=== PATIENT | male | born 1975 | race Hispanic/Latino ===

== ENCOUNTER 2016-10-10 15:27 | Inpatient (IN) | payer MEDICAID, OTHER ==
[2016-10-10 15:27] VITALS: BMI 21.5
[2016-10-10 17:44] LABS: BASO % 0.7 % (0.0-2.0); EOS % 0.5 % (0.0-4.0); LYMPH # 2.3 K/uL (1.0-4.3); LYMPH % 34.6 % (20.0-40.0); MEAN CELL VOLUME 85.4 fL (80.0-94.0); MEAN CORPUSCULAR HEMOGLOBIN 28.6 pg (27.0-31.0); MEAN CORPUSCULAR HGB CONC 33.5 g/dL (33.0-37.0); MEAN PLATELET VOLUME 7.7 fL (7.2-11.7); MONO # 0.6 K/uL (0.0-0.8); MONO % 9.4 % (0.0-10.0); WHITE BLOOD COUNT 6.6 K/uL (4.8-10.8)
[2016-10-10 17:52] LABS: CHLORIDE 95 mmol/L (98-107); POTASSIUM 4.1 mmol/L (3.6-5.2); SODIUM 139 mmol/L (132-148)
[2016-10-10 17:55] LABS: ALB/GLOB RATIO 1.7 (1.0-2.1); ALKALINE PHOSPHATASE 109 U/L (38-126); ALT/SGPT 109 U/L (21-72); AST/SGOT 73 U/L (17-59); BILIRUBIN,TOTAL 0.6 mg/dL (0.2-1.3); BLOOD UREA NITROGEN 12 mg/dL (9-20); CARBON DIOXIDE 28 mmol/L (22-30); GFR AFRICAN-AMERICAN > 60; GLUCOSE,RANDOM 89 mg/dL (75-110); TOTAL PROTEIN 7.4 g/dL (6.3-8.3)
[2016-10-10 17:56] LABS: ALCOHOL SERUM < 10 mg/dl (0-10); CALCIUM 8.9 mg/dl (8.6-10.4)
--- NOTE | 2016-10-10 18:43 | C.PDOC ---
History Of Present Illness <Karen Sutherland - Last Filed: 10/10/16 18:50> <Brandt Eagle - Last Filed: 10/10/16 20:04> 41 year old man presents to the ED with complaints of depression and suicidal ideation. Patient states he has a plan and notes he is currently on methadone. Denies homicidal ideation or any physical complaints at this time. (Karen Sutherland) History Per: Patient History/Exam Limitations: no limitations Onset/Duration Of Symptoms: Days Current Symptoms Are (Timing): Still Present Suicide/Self Injury Attempted (Context): None Severity: Mild Associated Symptoms: Depression, Suicidal Thoughts, Suicidal Plan <Karen Sutherland - Last Filed: 10/10/16 18:50> <Brandt Eagle - Last Filed: 10/10/16 20:04> Time Seen by Provider: 10/10/16 17:29 Chief Complaint (Nursing): Psychiatric Evaluation Past Medical History Reviewed: Historical Data, Nursing Documentation, Vital Signs - Medical History PMH: Anxiety, Bipolar Disorder, Depression, Seizures (Benzo withdrawal) Family History: States: Unknown Family Hx - Social History Hx Tobacco Use: No Hx Alcohol Use: Yes Hx Substance Use: Yes (PREVIOUS HEROIN) - Immunization History Hx Tetanus Toxoid Vaccination: No Hx Influenza Vaccination: No Hx Pneumococcal Vaccination: No <Karen Sutherland - Last Filed: 10/10/16 18:50> Vital Signs: Last Vital Signs Temp 98.5 F 10/10/16 19:21 Pulse 86 10/10/16 19:21 Resp 20 10/10/16 19:21 BP 120/73 10/10/16 19:21 Pulse Ox 96 10/10/16 19:21 - [facility] Procedures DETOXIFICATION SERVICES FOR SUBSTANCE ABUSE TREATMENT (10/29/15) GROUP PSYCHOTHERAPY (11/15/15) INDIVIDUAL PSYCHOTHERAPY, SUPPORTIVE (11/15/15) MEDICATION MANAGEMENT (10/29/15) MEDS MGMT FOR SUBSTANCE ABUSE TREATMENT, METHADONE MAINT (11/15/15) Review Of Systems Except As Marked, All Systems Reviewed And Found Negative. Constitutional: Negative for: Fever, Chills Psych: Positive for: Depression, Suicidal ideation <Karen Sutherland - Last Filed: 10/10/16 18:50> Physical Exam - Physical Exam Appears: Non-toxic, No Acute Distress Skin: Normal Color, Warm, Dry Head: Atraumatic, Normacephalic Eye(s): bilateral: Normal Inspection Oral Mucosa: Moist Chest: Symmetrical, No Deformity Cardiovascular: Rhythm Regular Respiratory: Normal Breath Sounds, No Accessory Muscle Use, No Rales, No Rhonchi , No Wheezing Gastrointestinal/Abdominal: Soft, No Tenderness Extremity: Normal ROM Neurological/Psych: Oriented x3, Normal Speech <Karen Sutherland - Last Filed: 10/10/16 18:50> ED Course And Treatment - Laboratory Results Result Diagrams: 10/10/16 17:40 10/10/16 17:40 O2 Sat by Pulse Oximetry: 97 (Room air) Pulse Ox Interpretation: Normal Progress Note: Blood work and Urinalysis ordered and reviewed. Case discussed with the crisis caretaker resort who agreed to evaluate the patient. <Karen Sutherland - Last Filed: 10/10/16 18:50> - Laboratory Results Result Diagrams: 10/10/16 17:40 10/10/16 17:40 <Brandt Eagle - Last Filed: 10/10/16 20:04> Disposition - Disposition Disposition Time: 18:51 <Karen Sutherland - Last Filed: 10/10/16 18:50> - Disposition Disposition Time: 20:04 <Brandt Eagle - Last Filed: 10/10/16 20:04> - Disposition Disposition: HOSPITALIZED Condition: STABLE - Clinical Impression Clinical Impression: Opioid abuse, Depression - PA / P[employer] / Resident Statement MD/DO has reviewed & agrees with the documentation as recorded. - Scribe Statement The provider has reviewed the documentation as recorded by the Scribe <Karen Sutherland - Last Filed: 10/10/16 18:50> <Brandt Eagle - Last Filed: 10/10/16 20:04> - Scribe Statement Ys All medical record entries made by the Scribe were at my direction and personally dictated by me. I have reviewed the chart and agree that the record accurately reflects my personal performance of the history, physical exam, medical decision making, and the department course for this patient. I have also personally directed, reviewed, and agree with the discharge instructions and disposition.amada Choudhary. (Karen Sutherland) Physician Patient Turnover Patient Signed Over To: Brandt Eagle Handoff Comments: PEnidng disposition <Karen Sutherland - Last Filed: 10/10/16 18:50> Addendum <Karen Sutherland - Last Filed: 10/10/16 18:50> <Brandt Eagle - Last Filed: 10/10/16 20:04> Addendum: Pt seen by crisis and after discussion with dr Beatty pt to be admitted to 5E (Brandt Eagle)
[2016-10-10 18:45] LABS: RBC URINE 3 /hpf (0-3); URINE BILIRUBIN NEGATIVE (NEGATIVE); URINE BLOOD NEGATIVE (NEGATIVE); URINE COLOR Yellow (YELLOW); URINE GLUCOSE (UA) NORMAL (Normal); URINE KETONE TRACE mg/dL (NEGATIVE); URINE LEUKOCYTE ESTERASE NEG Leu/uL (Negative); URINE PROTEIN NEGATIVE (NEGATIVE); WBC URINE 1 /hpf (0-5)
[2016-10-10 20:53] VITALS: O2SAT 98
[2016-10-10] MEDS ORDERED: Aluminum Hydroxide/Magnesium Hydroxide Susp (30 mL) PO PRN (22:24)
[2016-10-11] MEDS: Methadone 40 mg Tab PO SCH (09:15)
--- NOTE | 2016-10-11 16:18 | PCM.PSYCH ---
Initial Psychiatric Evaluation - Initial Psychiatric Evaluation Legal Status: Capacity Chief Complaint (in patient's own words): Suicidal Ideation History of Present Illness and Precipitating Events: Pt is a 41 y/o M, , unemployed and homeless, w/ PMHx of attempted suicide, anxiety, depression, and substance abuse disorder, here w/ a chief complaint of suicidal ideation - Pt. planned to either lay on the train tracks or jump off of a building in [place], [place]. Pt. reports feeling suicidal for the past 1.5 months; suicidal thoughts increased in the last 8 days, and came to a head last night. Pt. called the hospital, and spoke to an individual on the phone - Antelmo - and he was encouraged to seek help in the ED. Pt. has had two previous suicide attempts: 1) About 1.5 years ago Pt. took every drug you could imagine with the intention of overdosing and ending his own life. Pt. was found by a friend, who called an ambulance. Pt. was not admitted into the hospital, because he did not admit to suicidal ideation. 2) 1 year ago Pt. deliberately overdosed on methadone and xanax with the intention of ending his own life. Pt. spent one week admitted to [facility]. Pt. was discharged w/ trazodone 50 mg daily, lexapro 20 mg daily, prazosin 1 mg daily, and gabapentin 400 mg TID. Pt. was seeing outpatient psychiatrist, and was taking meds before his most recent drug relapse. Pt. admits to long history of generalized anxiety and panic disorder - Pt. reports suffering from daily panic attacks as a teenager. Pt. first used opiates at the age of 23 in order to treat anxiety. Pt. reports using up to 50 bags of heroin a day, as well abusing xanax, and cocaine. Pt. admits to sniffing and snorting heroin. Pt.s longest period of sobriety was 4 years, between the ages of 28 and 32 - he relapsed after being prescribed opioids for pain after a hand surgery. Pt. attests to 9 months sober that ended a month ago. Pt. states that his girlfriend pressured him to go to bars, which undermined his sobriety. Pt. admits to insomnia, poor appetite, weight loss, anhedonia, feelings of guilt /worthlessness, and decreased focus. Pt. complains of withdrawal symptoms: diaphoresis, anxiety, headaches, and restlessness. Pt. reports that he has suffered from seizures in the past. Pt. is organized, with depressed affect. Pt. denies auditory and visual hallucinations. Pt. was previously living at a program called [facility], but is currently homeless. Current Medications: Active Medications Generic Name Dose Route Start Last Admin Trade Name Freq PRN Reason Stop Dose Admin Al Hydrox/Mg Hydrox/Simethicone 30 ml 10/10/16 22:24 Maalox 30 Ml PO TID PRN Indigestion / Heartburn Clonidine HCl 0.1 mg 10/10/16 22:24 10/10/16 22:52 Catapres PO 0.1 mg Q8 PRN Administration COWS Score More or Equal to 5 Fluoxetine HCl 20 mg 10/11/16 10:00 10/11/16 09:15 Prozac PO 20 mg DAILY MALDONADO Administration Gabapentin 300 mg 10/11/16 10:00 10/11/16 09:15 Neurontin PO 300 mg BID MALDONADO Administration Haloperidol 5 mg 10/10/16 22:28 Haldol PO Q1H PRN agitation, max 4x/24h Hydroxyzine HCl 50 mg 10/10/16 22:25 10/11/16 12:23 Atarax PO 50 mg Q6H PRN Administration Anxiety Ibuprofen 600 mg 10/10/16 22:25 10/10/16 22:41 Motrin Tab PO 600 mg Q6H PRN Administration Pain, moderate (4-7) Loperamide HCl 2 mg 10/10/16 22:24 Imodium PO Q8 PRN Diarrhea Methadone HCl 120 mg 10/11/16 10:00 10/11/16 09:15 Methadose PO 120 mg DAILY MALDONADO Administration Methadone HCl 30 mg 10/11/16 10:00 10/11/16 09:15 Methadone PO 30 mg DAILY MALDONADO Administration Ondansetron HCl 4 mg 10/10/16 22:24 Zofran Tab PO Q8 PRN Nausea/Vomiting Pneumococcal Polyvalent Vaccine 0.5 ml 10/12/16 10:00 Pneumovax 23 Vaccine IM 10/12/16 10:01 .ONCE ONE Trazodone HCl 100 mg 10/10/16 22:25 10/10/16 22:40 Desyrel PO 100 mg HS PRN Administration Insomnia Past Psychiatric History - Past Psychiatric History Pertinent Medical Hx (Current Medical&Sleep Prob, Allergies): Allergies Allergy/AdvReac Type Severity Reaction Status Date / Time No Known Allergies Allergy Verified 11/15/15 12:16 Methadone 150 mg PO DAILY 10/29/15 Review of Systems - Psychiatric Psychiatric: Anhedonia, Anxiety, Change in Appetite, Confusion, Depression, Difficulty Concentrating, Memory Loss, Panic Attacks, Suicidal Ideation. absent : Auditory Hallucinations, Hallucinations, Mood Swings, Paranoia, Visual Hallucinations Mental Status Examination - Personal Presentation Personal Presentation: Looks stated age - Affect Affect: Broad - Motor Activity Motor Activity: Calm - Reliability in Providing Information Reliability in Providing Information: Good - Speech Speech: Organized, Relevant - Mood Mood: Depressed - Formal Thought Process Formal Thought Process: No Impairment - Obsessions/Compulsions Obsessions: No Compulsions: No - Cognitive Functions Orientation: Person, Place, Situation, Time Sensorium: Alert Attention/Concentration: Attentive Judgement: Intact, as evidence by: Insight regarding need for hospitalization Memory: Recent intact, as evidence by: Ability to recall events of the day, Remote intact, as evidenced by: Abilit to recall sig. life events - Risk Risk: Suicidal - Strength & Assets Inventory Strength & Assets Inventory: Intelligence, Employment history, Skills DSM 5 DX - DSM 5 DSM 5 Diagnosis: Major Depressive disorder, severe, without psychotic features Opioid use disorder, severe on maintenance therapy Alcohol use disorder severe - Recommended/Plan of Treatment Treatment Recommendations and Plan of Treatment: Major Depressive Disorder, severe, without psychotic features -Fluoxetine 20 mg daily -Gabapentin 300 mg by mouth twice a day -Haldol PRN for agitation -CBT -Attend groups and activities Opioid use disorder, severe on maintenance therapy -Methadone 150 mg -CBT and psychoeducation Alcohol use disorder severe -CBT -Psychoeducation -Librium when necessary - Smoking Cessation Smoking Cessation Initiated: Yes
[2016-10-12] MEDS: Methadone 40 mg Tab PO SCH (09:33)
[2016-10-12] MEDS ORDERED: Pneumococcal 23-Valent Vaccine IM ONE (10:00)
--- NOTE | 2016-10-12 10:23 | PCM.PYCHPN ---
Psychiatric Progress Note - Psychiatric Progress Note Patient seen today, length of contact: 16 min Patient Chief Complaint: Suicidal Ideation Problems Identified/Issues Discussed: Patient seen and evaluated, chart reviewed and discussed with the nurse. Patient reports depressed mood and at times feelings of hopelessness and helplessness. As per the staff patient remained isolated and withdrawn. Patient reports poor sleep and poor appetite. Patient is taking medications and denies any side effects. Supportive therapy and psychoeducation were given. Medication Change: Yes Medical Record Reviewed: Yes Mental Status Examination - Cognitive Function Orientation: Person, Place, Situation, Time Attention: WNL Concentration: Poor Association: WNL Fund of Knowledge: Poor - Mood Mood: Depressed - Affect Affect: Broad - Formal Thought Process Formal Thought Process: No Impairment - Suicidal Ideation Suicidal Ideation: No - Homicidal Ideation Homicidal Ideation: No Goal/Treatment Plan - Goal/Treatment Plan Need for Continued Stay: Discharge may exacerbated symptoms, Severe functional impairment Progress Toward Problem(s) and Goals/Treatment Plan: Major Depressive Disorder, severe, without psychotic features -Fluoxetine 20 mg daily -Gabapentin 300 mg by mouth twice a day -Haldol PRN for agitation -CBT -Attend groups and activities Opioid use disorder, severe on maintenance therapy -Methadone 150 mg -CBT and psychoeducation Alcohol use disorder severe -CBT -Psychoeducation -Librium when necessary - Smoking Cessation Smoking Cessation Initiated: No
[2016-10-13] MEDS: Methadone 40 mg Tab PO SCH (09:23)
--- NOTE | 2016-10-13 15:04 | PCM.PYCHPN ---
Psychiatric Progress Note - Psychiatric Progress Note Patient seen today, length of contact: 16 min Patient Chief Complaint: Suicidal Ideation Problems Identified/Issues Discussed: Pt. reports poor sleep due to tremors and diaphoresis. Pt. is otherwise not suffering from any withdrawal symptoms. Pt.s mood and affect are improved. Pt. was observed socializing in common areas. Medication Change: Yes Medical Record Reviewed: Yes Mental Status Examination - Cognitive Function Orientation: Person, Place, Situation, Time Attention: WNL Concentration: WNL Association: WNL Fund of Knowledge: WNL - Mood Mood: Depressed - Affect Affect: Broad - Formal Thought Process Formal Thought Process: No Impairment - Suicidal Ideation Suicidal Ideation: No - Homicidal Ideation Homicidal Ideation: No Goal/Treatment Plan - Goal/Treatment Plan Progress Toward Problem(s) and Goals/Treatment Plan: Major Depressive Disorder, severe, without psychotic features -Fluoxetine 20 mg daily -Gabapentin 300 mg by mouth twice a day -Haldol PRN for agitation -CBT -Attend groups and activities Opioid use disorder, severe on maintenance therapy -Methadone 150 mg -CBT and psychoeducation Alcohol use disorder severe -CBT -Psychoeducation -Librium when necessary
--- NOTE | 2016-10-14 09:39 | PCM.PYCHPN ---
Psychiatric Progress Note - Psychiatric Progress Note Patient seen today, length of contact: 16 min Patient Chief Complaint: i am feeling a little better Problems Identified/Issues Discussed: Patient seen and evaluated, chart reviewed and discussed with the nurse. Patient reports improvement in his mood but still c/o depressed and irritable mood and at times feelings of hopelessness and helplessness. Pt was educated about the possibility of another antidepressants and pt agreed to be on wellbutrin. Supportive therapy and psychoeducation were given. Medication Change: Yes (start welbutrin) Medical Record Reviewed: Yes Mental Status Examination - Cognitive Function Orientation: Person, Place, Situation, Time Attention: WNL Concentration: Poor Association: WNL Fund of Knowledge: Poor - Mood Mood: Depressed - Affect Affect: Constricted, Depressed - Speech Speech: Soft - Formal Thought Process Formal Thought Process: No Impairment - Suicidal Ideation Suicidal Ideation: No - Homicidal Ideation Homicidal Ideation: No Goal/Treatment Plan - Goal/Treatment Plan Need for Continued Stay: Discharge may exacerbated symptoms, Severe functional impairment Progress Toward Problem(s) and Goals/Treatment Plan: Major Depressive Disorder, severe, without psychotic features -Fluoxetine 20 mg daily -Gabapentin 300 mg by mouth twice a day -Welbutrin 100 mg po daily -Haldol PRN for agitation -CBT -Attend groups and activities Opioid use disorder, severe on maintenance therapy -Methadone 150 mg -CBT and psychoeducation Alcohol use disorder severe -CBT -Psychoeducation -Librium when necessary - Smoking Cessation Smoking Cessation Initiated: No
[2016-10-14] MEDS: Methadone 40 mg Tab PO SCH (10:26)
[2016-10-15] MEDS: Methadone 40 mg Tab PO SCH (09:22)
--- NOTE | 2016-10-15 11:21 | PCM.PYCHPN ---
Psychiatric Progress Note - Psychiatric Progress Note Patient seen today, length of contact: 16 min Patient Chief Complaint: I am feeling better. Problems Identified/Issues Discussed: Patient seen and evaluated, chart reviewed and discussed with the nurse. As per the staff, pt is feeling better and appears less depressed. Patient reports improvement in his mood with welbutrin and he is requesting to increase the dose. he denies SI/HI and any side effects of the meds. Supportive therapy and psychoeducation were given. Medication Change: Yes (increase welbutrin) Medical Record Reviewed: Yes Mental Status Examination - Cognitive Function Orientation: Person, Place, Situation, Time Attention: WNL Concentration: Poor Association: WNL Fund of Knowledge: Poor - Mood Mood: Depressed - Affect Affect: Broad - Formal Thought Process Formal Thought Process: No Impairment - Suicidal Ideation Suicidal Ideation: No - Homicidal Ideation Homicidal Ideation: No Goal/Treatment Plan - Goal/Treatment Plan Need for Continued Stay: Discharge may exacerbated symptoms, Severe functional impairment Progress Toward Problem(s) and Goals/Treatment Plan: Major Depressive Disorder, severe, without psychotic features -Fluoxetine 20 mg daily -Gabapentin 300 mg by mouth twice a day -Welbutrin 100 mg po BID -Haldol PRN for agitation -CBT -Attend groups and activities Opioid use disorder, severe on maintenance therapy -Methadone 150 mg -CBT and psychoeducation Alcohol use disorder severe -CBT -Psychoeducation -Librium when necessary - Smoking Cessation Smoking Cessation Initiated: No
[2016-10-16 07:27] VITALS: RESP 19
[2016-10-16] MEDS: Methadone 40 mg Tab PO SCH (09:24)
--- NOTE | 2016-10-16 16:14 | PCM.PYCHPN ---
Psychiatric Progress Note - Psychiatric Progress Note Patient seen today, length of contact: 17 min Patient Chief Complaint: I couldnt sleep last night Problems Identified/Issues Discussed: Patient seen and evaluated, chart reviewed and discussed with the nurse. Today pt reports that he couldnt sleep last night and took benadryl and haldol for sleep. Pt was educated to take welbutrin only in the daytime. Patient agreed and reports improvement in his mood and denies and SI/HI. Supportive therapy and psychoeducation were given. Medication Change: Yes (change welbutrin to 200 mg po daily) Medical Record Reviewed: Yes Mental Status Examination - Cognitive Function Orientation: Person, Place, Situation, Time Attention: WNL Concentration: WNL Association: WNL Fund of Knowledge: WNL - Mood Mood: Depressed - Affect Affect: Broad - Speech Speech: Soft - Formal Thought Process Formal Thought Process: No Impairment - Suicidal Ideation Suicidal Ideation: No - Homicidal Ideation Homicidal Ideation: No Goal/Treatment Plan - Goal/Treatment Plan Need for Continued Stay: Discharge may exacerbated symptoms Progress Toward Problem(s) and Goals/Treatment Plan: Major Depressive Disorder, severe, without psychotic features -Fluoxetine 20 mg daily -Gabapentin 300 mg by mouth twice a day -Change Welbutrin 200 mg po daily -Haldol PRN for agitation -CBT -Attend groups and activities Opioid use disorder, severe on maintenance therapy -Methadone 150 mg -CBT and psychoeducation Alcohol use disorder severe -CBT -Psychoeducation -Librium when necessary - Smoking Cessation Smoking Cessation Initiated: No
[2016-10-17 08:01] VITALS: BP 103/61; PULSE 60; TEMP 97.9
[2016-10-17] MEDS: Methadone 40 mg Tab PO SCH (09:07)
--- NOTE | 2016-10-17 10:30 | PCM.PYCHDC ---
Mental Status Examination - Mental Status Examination Orientation: Person, Place, Situation, Time Memory: Intact Mood: Neutral Affect: Constricted Speech: Soft Attention: WNL Concentration: WNL Association: WNL Fund of Knowledge: WNL Formal Thought Process: No Impairment Description of patient's judgement and insight: good, fair Psychotic Thoughts and Behaviors: denies any AVH Suicidal Ideation: No Current Homicidal Ideation?: No Discharge Summary - Discharge Note Reason for Hospitalization: Pt is a 41 y/o M, , unemployed and homeless, w/ PMHx of attempted suicide, anxiety, depression, and substance abuse disorder, here w/ a chief complaint of suicidal ideation - Pt. planned to either lay on the train tracks or jump off of a building in [place], [place]. Pt. reports feeling suicidal for the past 1.5 months; suicidal thoughts increased in the last 8 days, and came to a head last night. Pt. called the hospital, and spoke to an individual on the phone - Antelmo - and he was encouraged to seek help in the ED. Pt. has had two previous suicide attempts: 1) About 1.5 years ago Pt. took every drug you could imagine with the intention of overdosing and ending his own life. Pt. was found by a friend, who called an ambulance. Pt. was not admitted into the hospital, because he did not admit to suicidal ideation. 2) 1 year ago Pt. deliberately overdosed on methadone and xanax with the intention of ending his own life. Pt. spent one week admitted to [facility]. Pt. was discharged w/ trazodone 50 mg daily, lexapro 20 mg daily, prazosin 1 mg daily, and gabapentin 400 mg TID. Pt. was seeing outpatient psychiatrist, and was taking meds before his most recent drug relapse. Pt. admits to long history of generalized anxiety and panic disorder - Pt. reports suffering from daily panic attacks as a teenager. Pt. first used opiates at the age of 23 in order to treat anxiety. Pt. reports using up to 50 bags of heroin a day, as well abusing xanax, and cocaine. Pt. admits to sniffing and snorting heroin. Pt.s longest period of sobriety was 4 years, between the ages of 28 and 32 - he relapsed after being prescribed opioids for pain after a hand surgery. Pt. attests to 9 months sober that ended a month ago. Pt. states that his girlfriend pressured him to go to bars, which undermined his sobriety. Pt. admits to insomnia, poor appetite, weight loss, anhedonia, feelings of guilt /worthlessness, and decreased focus. Pt. complains of withdrawal symptoms: diaphoresis, anxiety, headaches, and restlessness. Pt. reports that he has suffered from seizures in the past. Pt. is organized, with depressed affect. Pt. denies auditory and visual hallucinations. Pt. was previously living at a program called [facility], but is currently homeless. Consultations:: List each consultation separately and include: 1. Reason for request. 2. Findings. 3. Follow-up Summary of Hospital Course include:: 1. Description of specific treatment plan utilized for patients during their course of treatmen. 2. Summarize the time- course for resolution of acute symptoms and/or regressed behaviors. 3. Describe issues identified and worked on during hospitalization. 4. Describe medication utilized. 5. Describe medical problems identified and treated. 6. Reassessment of suicide risk Summary of Hospital Course: During the course of his stay, patient (pt) started progressively improving and he no longer remained irritable, depressed, and suicidal. His mood was improved and he started attending groups and meetings and started socializing. Patient denied any feelings of hopelessness, helplessness, and worthlessness, denied any problem with the sleep or appetite, denied suicidal ideation or homicidal ideation. Pt denied any auditory or visual hallucinations. Some changes were made in his current medications and patient was discharged on following medications. He tolerated these medications very well and denied any side effects. - Final Diagnosis (DSM 5) Condition upon Discharge: STABLE DSM 5: Major Depressive Disorder, severe, without psychotic features Opioid use disorder, severe on maintenance therapy Alcohol use disorder severe Disposition: HOME/ ROUTINE Follow-up Treatment Plan: Education: Pt was educated and counseled about the risks and benefits of taking and not taking medications. Pt was educated and counseled about the risks of drinking and abusing drugs. Pt was educated and counseled to go to the ER or call 911 if pt develop suicidal ideation or homicidal ideation, worsening of symptoms or severe side effects of the meds. Prescriptions/Medication Reconciliation: traZODone [Desyrel] 100 mg PO HS PRN #30 tab PRN Reason: Insomnia Gabapentin [Neurontin] 300 mg PO BID #60 cap FLUoxetine [Prozac] 20 mg PO DAILY #30 cap buPROPion [Wellbutrin] 100 mg PO DAILY #60 tab - Smoking Cessation Smoking Cessation Medication prescribed: No - Antipsychotic Medications Pt discharged on 2 or more routine antipsychotic medications: No
== END 2016-10-17 11:40 | disposition home or self-care (01) | DRG 430 ==
LOC: C.ER 15:27 → C.9E 19:54 → C.5E 20:36
PROVIDERS: ADMIT Psychiatry & Neurology Psychiatry; ATTEND Psychiatry & Neurology Psychiatry
DX: F32.2 Major depressive disorder, single episode, severe without psychotic features (principal); R45.851 Suicidal ideations; F11.20 Opioid dependence, uncomplicated; F14.10 Cocaine abuse, uncomplicated; F13.10 Sedative, hypnotic or anxiolytic abuse, uncomplicated; F41.1 Generalized anxiety disorder; G47.00 Insomnia, unspecified; Z59.0 Homelessness; F10.10 Alcohol abuse, uncomplicated; Z68.23 Body mass index [BMI] 23.0-23.9, adult

== ENCOUNTER 2017-08-20 17:54 | Inpatient (IN) | payer MEDICAID, OTHER ==
[2017-08-20 17:54] VITALS: BMI 21.5
--- NOTE | 2017-08-20 19:54 | C.PDOC ---
History Of Present Illness 42yo male with past medical history of depression, suicide attempts, brought to ER by his girlfriend for evaluation of suicidal intent with plan to jump off a high bridge. Patient has had a history of depression for a long time and his prior attempts include cutting himself. He was on medications in the past for his depression, but currently isn't on any. Patient used heroin in the past and is currently on methadone. He states he has been having trouble sleeping and states he feels hopeless. Patient's girlfriend found a suicide note at home and brought him in for evaluation; she is currently not present at bedside. Patient has no medical complaints. Time Seen by Provider: 08/20/17 19:39 Chief Complaint (Nursing): Psychiatric Evaluation History Per: Patient History/Exam Limitations: no limitations Current Symptoms Are (Timing): Still Present Associated Symptoms: Depression, Suicidal Thoughts, Suicidal Plan Past Medical History Reviewed: Historical Data, Nursing Documentation, Vital Signs Vital Signs: Last Vital Signs Temp 98.1 F 08/20/17 19:12 Pulse 94 H 08/20/17 19:12 Resp 18 08/20/17 19:12 BP 109/66 08/20/17 19:12 Pulse Ox 97 08/20/17 19:57 - Medical History PMH: Anxiety, Bipolar Disorder, Depression, Seizures (Benzo withdrawal) Denies: Diabetes, Hepatitis, HIV, HTN, Chronic Kidney Disease, Sexually Transmitted Disease Surgical History: No Surg Hx - [facility] Procedures DETOXIFICATION SERVICES FOR SUBSTANCE ABUSE TREATMENT (10/29/15) GROUP PSYCHOTHERAPY (11/15/15) INDIVIDUAL PSYCHOTHERAPY, SUPPORTIVE (11/15/15) MEDICATION MANAGEMENT (10/29/15) MEDS [facility] FOR SUBSTANCE ABUSE TREATMENT, METHADONE MAINT (11/15/15) Family History: States: No Known Family Hx, Unknown Family Hx - Social History Hx Tobacco Use: No Hx Alcohol Use: Yes Hx Substance Use: Yes - Immunization History Hx Tetanus Toxoid Vaccination: No Hx Influenza Vaccination: No Hx Pneumococcal Vaccination: No Review Of Systems Constitutional: Negative for: Fever, Chills Eyes: Negative for: Vision Change Cardiovascular: Negative for: Chest Pain, Palpitations Respiratory: Negative for: Cough, Shortness of Breath Gastrointestinal: Negative for: Nausea, Vomiting, Abdominal Pain, Diarrhea Musculoskeletal: Negative for: Back Pain Skin: Negative for: Rash Neurological: Negative for: Weakness, Numbness Psych: Positive for: Depression, Suicidal ideation Physical Exam - Physical Exam Appears: Non-toxic, Other (patient calm and cooperative) Skin: Warm, Dry Head: Atraumatic, Normacephalic Eye(s): bilateral: Normal Inspection Neck: Supple Chest: Symmetrical Cardiovascular: Rhythm Regular Respiratory: Normal Breath Sounds, No Wheezing Extremity: Normal ROM Neurological/Psych: Oriented x3, Normal Speech, Normal Cognition ED Course And Treatment - Laboratory Results Result Diagrams: 08/20/17 21:09 08/20/17 21:09 Lab Interpretation: No Acute Changes (UDS + methadone and benzos and cocaine) O2 Sat by Pulse Oximetry: 97 (RA) Pulse Ox Interpretation: Normal Progress Note: Patient is medically cleared for psychiatric admission. Reevaluation Time: 22:15 Reassessment Condition: Unchanged Medical Decision Making Medical Decision Making: Impression: Suicidal ideation, depression Plan: -- Labs -- Urinalysis Disposition - Disposition Disposition: HOSPITALIZED Disposition Time: 22:16 Condition: STABLE - POA Present On Arrival: None - Clinical Impression Clinical Impression: Suicidal ideation, Major depression - Scribe Statement The provider has reviewed the documentation as recorded by the Scribe (Shilpi Zamarripa) Provider Attestation: All medical record entries made by the Scribe were at my direction and personally dictated by me. I have reviewed the chart and agree that the record accurately reflects my personal performance of the history, physical exam, medical decision making, and the department course for this patient. I have also personally directed, reviewed, and agree with the discharge instructions and disposition.
[2017-08-20 21:19] LABS: BASO # 0.1 K/uL (0.0-0.2); BASO % 0.7 % (0.0-2.0); EOS % 0.5 % (0.0-4.0); HEMOGLOBIN 15.9 g/dL (12.0-18.0); LYMPH # 2.9 K/uL (1.0-4.3); MEAN CELL VOLUME 87.4 fL (80.0-94.0); MEAN CORPUSCULAR HEMOGLOBIN 30.3 pg (27.0-31.0); MEAN CORPUSCULAR HGB CONC 34.6 g/dL (33.0-37.0); MEAN PLATELET VOLUME 7.8 fL (7.2-11.7); MONO # 0.5 K/uL (0.0-0.8); MONO % 5.5 % (0.0-10.0); NEUT # 4.9 K/uL (1.8-7.0); NEUT % 58.3 % (50.0-75.0); RBC 5.25 Mil/uL (4.40-5.90); RED CELL DISTRIBUTION WIDTH 13.7 % (11.5-14.5); WHITE BLOOD COUNT 8.3 K/uL (4.8-10.8)
[2017-08-20 21:23] LABS: URINE BACTERIA RARE (<OCC); URINE BILIRUBIN NEGATIVE (NEGATIVE); URINE BLOOD NEGATIVE (NEGATIVE); URINE CLARITY Hazy (Clear); URINE COLOR Amber (YELLOW); URINE GLUCOSE (UA) NORMAL (Normal); URINE LEUKOCYTE ESTERASE NEG Leu/uL (Negative); URINE NITRATE NEGATIVE (NEGATIVE); URINE PROTEIN 1+ mg/dL (NEGATIVE)
[2017-08-20 21:30] LABS: ALB/GLOB RATIO 1.3 (1.0-2.1); ALBUMIN 4.1 g/dL (3.5-5.0); GFR AFRICAN-AMERICAN > 60; GFR NON-AFRICAN AMERICAN > 60
[2017-08-20 21:37] LABS: ALT/SGPT 33 U/L (21-72); AST/SGOT 39 U/L (17-59); BLOOD UREA NITROGEN 10 mg/dL (9-20)
[2017-08-20 21:38] LABS: BARBITURATES, UR NEGATIVE (NEGATIVE); OPIATES, UR NEGATIVE (NEGATIVE); PHENCYCLIDINE, UR NEGATIVE (NEGATIVE)
[2017-08-20 21:42] LABS: BENZODIAZEPINES, UR POSITIVE (NEGATIVE)
--- NOTE | 2017-08-21 00:03 | PCM.BM ---
<Bar Llanos - Last Filed: 08/21/17 00:00> Treatment Plan Problems - Problems identified on initial assessmt DEPRESSION Date Initiated: 08/20/17 Time Initiated: 23:45 Assessment reference: NA Status: Active SUICIDAL IDEATION Date Initiated: 08/20/17 Time Initiated: 23:45 Assessment reference: NA Status: Active SUBSTANCE ABUSE Date Initiated: 08/20/17 Time Initiated: 23:45 Assessment reference: NA Status: Active Treatment assets and liabiliti Patient Assests: cooperative, self-reliant, ADL independent, negotiates basic needs, cognitively intact Patient Liabilities: financial problems, poor support system, substance abuse, legal issue - Milieu Protocol Maintain good personal hygiene: daily Encourage regular showers, daily Remind patient to perform daily oral care, daily Assist patient to perform ADL's Maintain personal safety: every shift Educate patient to report safety concerns to staff, every shift Monitor environment for contraband/sharps Medication safety: Monitor for expected outcome, potential side effects: every shift, Assess barriers to learning: every shift, Assess readiness for medication education: every shift <Mala Ling - Last Filed: 08/21/17 10:56> Family Contact Family involvement: Famliy/SO not involved - Goals for Treatment Patient goals for treatment: "I want to go back to my methadone clinic." Discharge/Continuing Care - Education Needs Education Needs: Patient Medication, Patient Coping Skills, Patient Placement options, Patient Community resources - Discharge Discharge Criteria: Tolerates medication w/o severe side effects, No longer exhibiting s/s of withdrawal Discharge to:: Home - Treatment Team Participation Discussed with Family/SO: No Was Patient/Family/SO present at Treatment Team Meeting: Yes <Brad King - Last Filed: 08/21/17 11:02> - Diagnosis (1) Major depression Status: Acute Interventions: 08/21/17 11:01 * Assess/adjust medications daily and /or as needed * See patient on an individual basis 7x/week to assess symptoms of depression * Monitor for side effects & effectiveness of medications * (2) Opioid abuse Status: Acute Interventions: 08/21/17 11:01 * Assess 7x/week regarding severity of withdrawal * Educate regarding risks, benefits, side effects and alternatives of medications * Use Motivational Interviewing for abstinence * Use CBT for relapse prevention * Medication management for withdrawal symptoms * Encourage medication assisted treatment * (3) Sedative, hypnotic or anxiolytic use disorder, severe, dependence Status: Acute Interventions: 08/21/17 11:01 * Assess 7x/week regarding severity of withdrawal * Educate regarding risks, benefits, side effects and alternatives of medications * Use Motivational Interviewing for abstinence * Use CBT for relapse prevention * Medication management for withdrawal symptoms * Encourage medication assisted treatment *
[2017-08-21] MEDS ORDERED: Influenza Vaccine 60 mcg/0.5 mL SYR (4YR UP) IM ONE (10:00)
--- NOTE | 2017-08-21 10:38 | PCM.PSYCH ---
Initial Psychiatric Evaluation - Initial Psychiatric Evaluation Type of Admission: Voluntary Legal Status: Capacity Chief Complaint (in patient's own words): "I feel like its not worth living right now." History of Present Illness and Precipitating Events: Patient is a 42 year old single male with no kids. He states that he has lived at since he was last dced from here in October, but has been living with friends since leaving 3 months ago due to relapse on xanax (6 bars per day) and cocaine (I smoke, shoot and snort whatevers available after I get the xanax , $60 per day). Last use for both was yesterday morning. Patient states he has stopped all medications prescribed here. He has continued his methadone maintenance through a [facility] program, where he also sees a psychiatrist. Last Monday, he attempted suicide by overdosing on xanax and cold medication. He states that his friend found him and took him here. Previous suicide attempt a couple of years ago attempted by cutting his wrists. He remained extremely depressed throughout the interview and states feelings of hopelessness, helplessness and worthlessness. He reports poor sleep and anhedonia. He denies any auditory or visual hallucinations or any paranoia. He reports irritability, racing of thoughts and agitation. He is currently withdrawing from xanax and reports withdrawal symptoms including tremors, sweating, headaches, psychomotor agitation, and anxiety. Psych: [facility] November 2016 for depression, anxiety, opioid use d/o and sedative hypnotic use d/o Rehab: Plan: Patient has not decided, will work with and will continue methadone maintenance in [place]. Current Medications: Active Medications Generic Name Dose Route Start Last Admin Trade Name Freq PRN Reason Stop Dose Admin Nicotine 1 patch 08/21/17 10:00 08/21/17 09:46 Nicoderm Cq TD 1 patch DAILY MALDONADO Administration Trazodone HCl 50 mg 08/20/17 23:55 08/21/17 00:18 Desyrel PO 50 mg HS PRN Administration Sleep Past Psychiatric History - Past Psychiatric History Previous Treatment History: Inpatient Pertinent Medical Hx (Current Medical&Sleep Prob, Allergies): Allergies Allergy/AdvReac Type Severity Reaction Status Date / Time No Known Allergies Allergy Verified 08/20/17 19:12 Methadone 85 mg PO DAILY 10/29/15 Review of Systems - Review of Systems All systems: reviewed and no additional remarkable complaints except - Neurological Neurological: UNREMARKABLE - Psychiatric Psychiatric: Anxiety, Depression, Hopelessness, Irritability, Mood Swings, Suicidal Ideation Mental Status Examination - Personal Presentation Personal Presentation: Looks stated age - Affect Affect: Constricted, Depressed - Motor Activity Motor Activity: Calm - Reliability in Providing Information Reliability in Providing Information: Good - Speech Speech: Organized - Mood Mood: Depressed, Anxious - Formal Thought Process Formal Thought Process: Flight of ideas - Cognitive Functions Orientation: Person, Place, Situation, Time Sensorium: Alert Attention/Concentration: Attentive Abstract Thinking: [place] Estimate of Intelligence: Below average Judgement: Imparied, as evidence by: Poor judgement, Imparied, as evidence by: Lack of insight into illness Memory: Remote intact, as evidenced by: Abilit to recall sig. life events - Risk Risk: Suicidal, Withdrawal, Diminished functioning - Limitations Limitations: Living alone DSM 5 DX - DSM 5 DSM 5 Diagnosis: Bipolar disorder depressed severe without psychotic features Sedative hypnotic use d/o- severe, Sedative hypnotic withdrawal Cocaine use d/o severe Opioid use d/o severe in remission on agonist therapy - Recommended/Plan of Treatment Treatment Recommendations and Plan of Treatment: Bipolar disorder depressed severe without psychotic features -Support and psychoeducation -Attend groups -Monitor symptoms -Use CBT -Trazodone -Gabapentin Sedative hypnotic use d/o- severe, Sedative hypnotic withdrawal -Monitor symptoms -Use [place] and CBT for abstinence -as needed medications -Ativan taper Cocaine use d/o severe -Use TN and CBT for abstinence Opioid use d/o severe in remission on agonist therapy -continue methadone maintenance 85 mg PO Daily -Aftercare: rehab referral, continue methadone maintenance program in [place] - Smoking Cessation Smoking Cessation Initiated: No
[2017-08-21] MEDS: Methadone 40 mg Tab PO SCH (11:28)
[2017-08-21] MEDS: Multiple Vitamins Tab PO SCH (11:28)
[2017-08-22] MEDS: Multiple Vitamins Tab PO SCH (09:35)
[2017-08-22] MEDS: Methadone 40 mg Tab PO SCH (09:36)
--- NOTE | 2017-08-22 23:03 | PCM.PYCHPN ---
Psychiatric Progress Note - Psychiatric Progress Note Patient seen today, length of contact: 15 min Patient Chief Complaint: "I feel like its not worth living right now." Problems Identified/Issues Discussed: Patient seen and evaluated, chart reviewed and discussed with the nurse. Patient remained irritable and agitated. He still reports racing of thoughts and flight of ideas. He remained isolated, confined and withdrawn. Patient reports withdrawal symptoms including nausea, headaches, cramps and sweating. He reports depressed mood and feelings of hopelessness and helplessness. Patient is compliant with medications and denies any side effects. Symptoms are improving but need more time to stabilize. Support and psychoeducation given. Medication Change: Yes (Ativan taper) Medical Record Reviewed: Yes Mental Status Examination - Cognitive Function Orientation: Person, Place, Situation, Time Memory: Intact Attention: WNL Concentration: Poor Association: WNL Fund of Knowledge: Poor - Mood Mood: Depressed, Anxious - Affect Affect: Constricted, Depressed - Speech Speech: Soft - Formal Thought Process Formal Thought Process: Flight of ideas - Suicidal Ideation Suicidal Ideation: No - Homicidal Ideation Homicidal Ideation: No Goal/Treatment Plan - Goal/Treatment Plan Need for Continued Stay: Severe depression anxiety, Severe functional impairment Progress Toward Problem(s) and Goals/Treatment Plan: Bipolar disorder depressed severe without psychotic features -Support and psychoeducation -Attend groups -Monitor symptoms -Use CBT -Trazodone -Gabapentin -Start Depakote Sedative hypnotic use d/o- severe, Sedative hypnotic withdrawal -Monitor symptoms -Use CA and CBT for abstinence -as needed medications -Ativan taper Cocaine use d/o severe -Use CA and CBT for abstinence Opioid use d/o severe in remission on agonist therapy -continue methadone maintenance 85 mg PO Daily -Aftercare: rehab referral, continue methadone maintenance program in [place] - Smoking Cessation Smoking Cessation Initiated: No
[2017-08-23] MEDS: Methadone 40 mg Tab PO SCH (09:51)
[2017-08-23] MEDS: Multiple Vitamins Tab PO SCH (09:52)
--- NOTE | 2017-08-23 10:55 | PCM.PYCHPN ---
Psychiatric Progress Note - Psychiatric Progress Note Patient seen today, length of contact: 15 min Patient Chief Complaint: "I feel little better with depakote." Problems Identified/Issues Discussed: Patient seen and evaluated, chart reviewed and discussed with the nurse. As per the staff pt still reports racing of thoughts and flight of ideas. He reports some improvement in the irritability and agitation and reports that Depakote is working. He remained isolated, confined and withdrawn. Patient reports withdrawal symptoms including nausea, headaches, cramps and sweating. He reports depressed mood and feelings of hopelessness and helplessness. Patient is compliant with medications and denies any side effects. Symptoms are improving but need more time to stabilize. Support and psychoeducation given. Medication Change: Yes (Ativan taper, increase depakote) Medical Record Reviewed: Yes Mental Status Examination - Cognitive Function Orientation: Person, Place, Situation, Time Memory: Intact Attention: WNL Concentration: Poor Association: WNL Fund of Knowledge: Poor - Mood Mood: Depressed, Anxious - Affect Affect: Constricted, Depressed - Speech Speech: Soft - Formal Thought Process Formal Thought Process: Flight of ideas - Suicidal Ideation Suicidal Ideation: No - Homicidal Ideation Homicidal Ideation: No Goal/Treatment Plan - Goal/Treatment Plan Need for Continued Stay: Severe depression anxiety, Severe functional impairment Progress Toward Problem(s) and Goals/Treatment Plan: Bipolar disorder depressed severe without psychotic features -Support and psychoeducation -Attend groups -Monitor symptoms -Use CBT -Trazodone -Gabapentin -Depakote 500 mg po BID -Start Remeron -Start Welbutrin Sedative hypnotic use d/o- severe, Sedative hypnotic withdrawal -Monitor symptoms -Use MT and CBT for abstinence -as needed medications -Ativan taper Cocaine use d/o severe -Use MT and CBT for abstinence Opioid use d/o severe in remission on agonist therapy -continue methadone maintenance 85 mg PO Daily -Aftercare: rehab referral, continue methadone maintenance program in [place]
[2017-08-24] MEDS: Methadone 40 mg Tab PO SCH (10:08)
[2017-08-24] MEDS: Divalproex 500 mg ER Tab PO SCH ×2 (10:08→17:26)
[2017-08-24] MEDS: Multiple Vitamins Tab PO SCH (10:09)
--- NOTE | 2017-08-24 10:47 | PCM.PYCHPN ---
Psychiatric Progress Note - Psychiatric Progress Note Patient seen today, length of contact: 15 min Patient Chief Complaint: "I feel little better with depakote." Problems Identified/Issues Discussed: Patient seen and evaluated, chart reviewed and discussed with the nurse. Patient reports improvement in his mood. He reports some improvement in the racing of thoughts and flight of ideas. He reports some improvement in the irritability and agitation. He started coming out of his room and started socializing. Patient reports improvement in the withdrawal symptoms and reports improvement in the depressed mood. Patient is compliant with medications and denies any side effects. Symptoms are improving but need more time to stabilize. Support and psychoeducation given. Medication Change: Yes (Ativan taper, increase depakote) Medical Record Reviewed: Yes Mental Status Examination - Cognitive Function Orientation: Person, Place, Situation, Time Memory: Intact Attention: WNL Concentration: Poor Association: WNL Fund of Knowledge: Poor - Mood Mood: Depressed, Anxious - Affect Affect: Constricted, Depressed - Speech Speech: Soft - Formal Thought Process Formal Thought Process: Flight of ideas - Suicidal Ideation Suicidal Ideation: No - Homicidal Ideation Homicidal Ideation: No Goal/Treatment Plan - Goal/Treatment Plan Need for Continued Stay: Severe depression anxiety, Severe functional impairment Progress Toward Problem(s) and Goals/Treatment Plan: Bipolar disorder depressed severe without psychotic features -Support and psychoeducation -Attend groups -Monitor symptoms -Use CBT -Trazodone -Gabapentin -Depakote 500 mg po BID -Remeron 30 -Welbutrin 75 Sedative hypnotic use d/o- severe, Sedative hypnotic withdrawal -Monitor symptoms -Use [place] and CBT for abstinence -as needed medications -Ativan taper Cocaine use d/o severe -Use [place] and CBT for abstinence Opioid use d/o severe in remission on agonist therapy -continue methadone maintenance 85 mg PO Daily -Aftercare: rehab referral, continue methadone maintenance program in [place] - Smoking Cessation Smoking Cessation Initiated: No
[2017-08-25] MEDS: Multiple Vitamins Tab PO SCH (09:49)
[2017-08-25] MEDS: Methadone 40 mg Tab PO SCH (09:50)
[2017-08-25] MEDS: Divalproex 500 mg ER Tab PO SCH ×2 (09:50→17:05)
--- NOTE | 2017-08-25 10:25 | PCM.PYCHPN ---
Psychiatric Progress Note - Psychiatric Progress Note Patient seen today, length of contact: 15 min Patient Chief Complaint: "I'm still very depressed and anxious." Problems Identified/Issues Discussed: Patient seen and evaluated, chart reviewed and discussed with the nurse. Patient reports improvement in his mood. He reports some improvement in the racing of thoughts and flight of ideas. He reports some improvement in the irritability and agitation. He started coming out of his room and started socializing. Patient reports improvement in the withdrawal symptoms and reports improvement in the depressed mood. Patient is compliant with medications and denies any side effects. Symptoms are improving but need more time to stabilize. Support and psychoeducation given. Medication Change: Yes (Ativan taper, discontinue Neurontin) Medical Record Reviewed: Yes Mental Status Examination - Cognitive Function Orientation: Person, Place, Situation, Time Memory: Intact Attention: WNL Concentration: Poor Association: WNL Fund of Knowledge: Poor - Mood Mood: Depressed, Anxious - Affect Affect: Constricted, Depressed - Speech Speech: Soft - Formal Thought Process Formal Thought Process: Flight of ideas - Suicidal Ideation Suicidal Ideation: Yes Plan: Denies. Significantly less frequent than on admission. - Homicidal Ideation Homicidal Ideation: No Goal/Treatment Plan - Goal/Treatment Plan Need for Continued Stay: Severe depression anxiety, Severe functional impairment Progress Toward Problem(s) and Goals/Treatment Plan: Bipolar disorder depressed severe without psychotic features -Support and psychoeducation -Attend groups -Monitor symptoms -Use CBT -Trazodone -d/c Gabapentin -Depakote 500 mg po BID -Remeron 45 -d/c Welbutrin 75 Sedative hypnotic use d/o- severe, Sedative hypnotic withdrawal -Monitor symptoms -Use CA and CBT for abstinence -as needed medications -Ativan taper Cocaine use d/o severe -Use CA and CBT for abstinence Opioid use d/o severe in remission on agonist therapy -continue methadone maintenance 85 mg PO Daily -Aftercare: rehab referral, continue methadone maintenance program in [place] - Smoking Cessation Smoking Cessation Initiated: No
[2017-08-26] MEDS: Multiple Vitamins Tab PO SCH (10:30)
[2017-08-26] MEDS: Methadone 40 mg Tab PO SCH (10:30)
[2017-08-26] MEDS: Divalproex 500 mg ER Tab PO SCH ×2 (10:30→17:16)
--- NOTE | 2017-08-26 19:34 | PCM.PYCHPN ---
Psychiatric Progress Note - Psychiatric Progress Note Patient seen today, length of contact: 15 min Patient Chief Complaint: "I'm feeling more tired." Problems Identified/Issues Discussed: Patient seen and evaluated, chart reviewed and discussed with the nurse. Patient reports increased in irritability and tiredness. He stated that he is feeling depressed and wants to continue Wellbutrin. He stated that Wellbutrin always help him. He reports some improvement in the racing of thoughts and flight of ideas. Per staff he started socializing. Patient reports improvement in the withdrawal symptoms. He reported toothache. Patient is compliant with medications and denies any side effects. Symptoms are improving but need more time to stabilize. Support and psychoeducation given. Medication Change: Yes (Ativan taper, discontinue Neurontin, decrease Remeron, start Wellbutrin) Medical Record Reviewed: Yes Mental Status Examination - Cognitive Function Orientation: Person, Place, Situation, Time Memory: Intact Attention: WNL Concentration: Poor Association: WNL Fund of Knowledge: WNL Decription of patient's judgement and insights: fair/fair Addtional comments: anxious and cooperative - Mood Mood: Depressed, Anxious - Affect Affect: Constricted, Depressed - Speech Speech: Soft - Formal Thought Process Formal Thought Process: Flight of ideas, Circumstantial Psychotic Thoughts and Behaviors: denied - Suicidal Ideation Suicidal Ideation: No Plan: denied - Homicidal Ideation Homicidal Ideation: No Plan: denied Goal/Treatment Plan - Goal/Treatment Plan Need for Continued Stay: Severe depression anxiety, Severe functional impairment Progress Toward Problem(s) and Goals/Treatment Plan: Continue current treatment as per primary team. Psychoeducation provided regarding diagnosis, treatment, meds benefits, side effects, risk and alternative choices. Pt verbalized understanding and agree with the treatment plan. Therapy in milieu
[2017-08-27 05:45] VITALS: RESP 16; O2SAT 99
[2017-08-27] MEDS: Methadone 40 mg Tab PO SCH (09:31)
[2017-08-27] MEDS: Divalproex 500 mg ER Tab PO SCH ×2 (09:32→17:06)
[2017-08-27] MEDS: Multiple Vitamins Tab PO SCH (09:32)
--- NOTE | 2017-08-27 16:37 | PCM.PYCHPN ---
Psychiatric Progress Note - Psychiatric Progress Note Patient seen today, length of contact: 15 min Patient Chief Complaint: "I'm feeling better now." Problems Identified/Issues Discussed: Patient seen and evaluated, chart reviewed and discussed with the nurse. Patient reports improvement in irritability and tiredness. He stated that he is feeling depressed and wants to continue Wellbutrin. He stated that Wellbutrin always help him. He reported tooth ache and ask for advil. He reports some improvement in the racing of thoughts and flight of ideas. Per staff he started socializing. Patient reports improvement in the withdrawal symptoms. Patient is compliant with medications and denies any side effects. Symptoms are improving but need more time to stabilize. Support and psychoeducation given. DSM 5 Symptoms Update: Bipolar disorder depressed severe without psychotic features Sedative hypnotic use d/o- severe, Sedative hypnotic withdrawal Cocaine use d/o severe Opioid use d/o severe in remission on agonist therapy Medication Change: Yes (Ativan taper, discontinue Neurontin, decrease Remeron, start Wellbutrin) Medical Record Reviewed: Yes Mental Status Examination - Cognitive Function Orientation: Person, Place, Situation, Time Memory: Intact Attention: WNL Concentration: Poor Association: WNL Fund of Knowledge: WN Decription of patient's judgement and insights: fair/fair - Mood Mood: Depressed, Anxious - Affect Affect: Constricted, Depressed - Speech Speech: Soft - Formal Thought Process Formal Thought Process: Flight of ideas, Circumstantial Psychotic Thoughts and Behaviors: denied - Suicidal Ideation Suicidal Ideation: No - Homicidal Ideation Homicidal Ideation: No Goal/Treatment Plan - Goal/Treatment Plan Need for Continued Stay: Severe depression anxiety, Severe functional impairment Progress Toward Problem(s) and Goals/Treatment Plan: Continue current treatment as per primary team. Psychoeducation provided regarding diagnosis, treatment, meds benefits, side effects, risk and alternative choices. Pt verbalized understanding and agree with the treatment plan. Therapy in milieu Estimated Date of D/C: 08/29/17 - Smoking Cessation Smoking Cessation Initiated: Yes
[2017-08-28] MEDS: Methadone 40 mg Tab PO SCH (10:09)
[2017-08-28] MEDS: Multiple Vitamins Tab PO SCH (10:10)
[2017-08-28] MEDS: Divalproex 500 mg ER Tab PO SCH ×2 (10:10→17:00)
--- NOTE | 2017-08-28 10:21 | PCM.PYCHPN ---
Psychiatric Progress Note - Psychiatric Progress Note Patient seen today, length of contact: 15 min Patient Chief Complaint: "I'm feeling better." Problems Identified/Issues Discussed: Patient seen and evaluated, chart reviewed and discussed with the nurse. Patient reports improvement in his mood and reports improvement in the racing of thoughts and flight of ideas. He reports improvement in the irritability and agitation. He started coming out of his room and started socializing. Patient reports improvement in the withdrawal symptoms and reports improvement in the depressed mood. Patient is compliant with medications and denies any side effects. Symptoms are improving but need more time to stabilize. Support and psychoeducation given. Medication Change: No Medical Record Reviewed: Yes Mental Status Examination - Cognitive Function Orientation: Person, Place, Situation, Time Memory: Intact Attention: WNL Concentration: WNL Association: WNL Fund of Knowledge: WNL - Mood Mood: Depressed, Anxious - Affect Affect: Constricted, Depressed - Speech Speech: Soft - Formal Thought Process Formal Thought Process: No Impairment - Suicidal Ideation Suicidal Ideation: No - Homicidal Ideation Homicidal Ideation: No Goal/Treatment Plan - Goal/Treatment Plan Need for Continued Stay: Severe depression anxiety, Severe functional impairment Progress Toward Problem(s) and Goals/Treatment Plan: Bipolar disorder depressed severe without psychotic features -Support and psychoeducation -Attend groups -Monitor symptoms -Use CBT -Trazodone -d/c Gabapentin -Depakote 500 mg po BID -Remeron 45 -d/c Welbutrin 75 Sedative hypnotic use d/o- severe, Sedative hypnotic withdrawal -Monitor symptoms -Use NE and CBT for abstinence -as needed medications -Ativan taper Cocaine use d/o severe -Use NE and CBT for abstinence Opioid use d/o severe in remission on agonist therapy -continue methadone maintenance 85 mg PO Daily -Aftercare: rehab referral, continue methadone maintenance program in [place] Estimated Date of D/C: 08/29/17 - Smoking Cessation Smoking Cessation Initiated: No
[2017-08-29 05:40] VITALS: BP 91/55; PULSE 58; TEMP 96.8
[2017-08-29] MEDS: Multiple Vitamins Tab PO SCH (09:34)
[2017-08-29] MEDS: Divalproex 500 mg ER Tab PO SCH (09:34)
[2017-08-29] MEDS ORDERED: Methadone 40 mg Tab PO ONE (10:30)
--- NOTE | 2017-08-29 10:32 | PCM.PYCHDC ---
Mental Status Examination - Mental Status Examination Orientation: Person, Place, Situation Memory: Intact Mood: Neutral Affect: Constricted Speech: Soft Attention: WNL Concentration: WNL Association: WNL Fund of Knowledge: WNL Formal Thought Process: No Impairment Description of patient's judgement and insight: good, fair Psychotic Thoughts and Behaviors: denies any AVH Suicidal Ideation: No Current Homicidal Ideation?: No Discharge Summary - Discharge Note Reason for Hospitalization: Patient is a 42 year old single male with no kids. He states that he has lived at since he was last dced from here in October, but has been living with friends since leaving 3 months ago due to relapse on xanax (6 bars per day) and cocaine (I smoke, shoot and snort whatevers available after I get the xanax , $60 per day). Last use for both was yesterday morning. Patient states he has stopped all medications prescribed here. He has continued his methadone maintenance through a [facility] program, where he also sees a psychiatrist. Last Monday, he attempted suicide by overdosing on xanax and cold medication. He states that his friend found him and took him here. Previous suicide attempt a couple of years ago attempted by cutting his wrists. He remained extremely depressed throughout the interview and states feelings of hopelessness, helplessness and worthlessness. He reports poor sleep and anhedonia. He denies any auditory or visual hallucinations or any paranoia. He reports irritability, racing of thoughts and agitation. He is currently withdrawing from xanax and reports withdrawal symptoms including tremors, sweating, headaches, psychomotor agitation, and anxiety. Psych: [facility] November 2016 for depression, anxiety, opioid use d/o and sedative hypnotic use d/o Rehab: Plan: Patient has not decided, will work with and will continue methadone maintenance in [place]. Consultations:: List each consultation separately and include: 1. Reason for request. 2. Findings. 3. Follow-up Summary of Hospital Course include:: 1. Description of specific treatment plan utilized for patients during their course of treatmen. 2. Summarize the time- course for resolution of acute symptoms and/or regressed behaviors. 3. Describe issues identified and worked on during hospitalization. 4. Describe medication utilized. 5. Describe medical problems identified and treated. 6. Reassessment of suicide risk Summary of Hospital Course: During the course of his stay, patient (pt) started progressively improving and he no longer remained irritable, depressed, and suicidal. His mood and anxiety symptoms were improved and he started attending groups and meetings and started socializing. Patient denied any feelings of hopelessness, helplessness, and worthlessness, denied any problem with the sleep or appetite, denied suicidal ideation or homicidal ideation. Pt denied any auditory or visual hallucinations. Some changes were made in his current medications and patient was discharged on following medications. He tolerated these medications very well and denied any side effects. Pt is to return to [facility] for methadone maintenance. - Diagnosis (1) Major depression Status: Acute (2) Opioid abuse Status: Acute (3) Sedative, hypnotic or anxiolytic use disorder, severe, dependence Status: Acute - Final Diagnosis (DSM 5) Condition upon Discharge: STABLE DSM 5: Bipolar disorder depressed severe without psychotic features Sedative hypnotic use d/o- severe, Cocaine use d/o severe Opioid use d/o severe in remission on agonist therapy Disposition: HOME/ ROUTINE Follow-up Treatment Plan: Education: Pt was educated and counseled about the risks and benefits of taking and not taking medications. Pt was educated and counseled about the risks of drinking and abusing drugs. Pt was educated and counseled to go to the ER or call 911 if pt develop suicidal ideation or homicidal ideation, worsening of symptoms or severe side effects of the meds. Prescriptions/Medication Reconciliation: buPROPion [Wellbutrin] 75 mg PO DAILY #30 tab Divalproex [Depakote ER] 500 mg PO BID #60 ter Mirtazapine [Remeron] 30 mg PO HS #30 tab traZODone [Desyrel] 50 mg PO HS PRN #30 tab PRN Reason: Sleep - Smoking Cessation Smoking Cessation Medication prescribed: No - Antipsychotic Medications Pt discharged on 2 or more routine antipsychotic medications: No
== END 2017-08-29 14:05 | disposition home or self-care (01) | DRG 430 ==
LOC: C.ER 17:54 → SUPCPDRO 17:54 → C.5E 22:16
PROVIDERS: ADMIT Psychiatry & Neurology Psychiatry; ATTEND Psychiatry & Neurology Psychiatry
PROC: GZ3ZZZZ Medication Management (ICD-10-PCS; principal; 2017-08-20)
PROC: GZHZZZZ Group Psychotherapy (ICD-10-PCS; 2017-08-20)
PROC: GZ56ZZZ Individual Psychotherapy, Supportive (ICD-10-PCS; 2017-08-20)
PROC: HZ2ZZZZ Detoxification Services for Substance Abuse Treatment (ICD-10-PCS; 2017-08-20)
PROC: HZ91ZZZ Pharmacotherapy for Substance Abuse Treatment, Methadone Maintenance (ICD-10-PCS; 2017-08-20)
DX: F31.4 Bipolar disorder, current episode depressed, severe, without psychotic features (principal); F13.239 Sedative, hypnotic or anxiolytic dependence with withdrawal, unspecified; F14.20 Cocaine dependence, uncomplicated; F11.21 Opioid dependence, in remission; K08.89 Other specified disorders of teeth and supporting structures; Z91.5 Personal history of self-harm

== ENCOUNTER 2017-10-18 14:44 | Inpatient (IN) | payer MEDICAID ==
[2017-10-18 14:44] VITALS: BMI 21.5
--- NOTE | 2017-10-18 15:51 | C.PDOC ---
History Of Present Illness 42-year-old male, presents to the emergency department with complaints of feeling depressed and suicidal over the past few days. Patient has a Hx of drug abuse (Benzodiazepines) in the past, on Methadone. States he is tired of being dependent on drugs and wants to kill himself. Patients plan is to jump off of a bridge, he was researching which bridges are high enough in [place], and to drive into oncoming traffic. Patient denies HI. Patient has a Hx of three suicide attempts in the past. he cut his wrist once, and overdosed twice. Time Seen by Provider: 10/18/17 15:09 Chief Complaint (Nursing): Psychiatric Evaluation History Per: Patient History/Exam Limitations: no limitations Onset/Duration Of Symptoms: Days Current Symptoms Are (Timing): Still Present Past Medical History Reviewed: Historical Data, Nursing Documentation, Vital Signs Vital Signs: Last Vital Signs Temp 97.8 F 10/18/17 14:58 Pulse 72 10/18/17 14:58 Resp 18 10/18/17 14:58 BP 112/79 10/18/17 14:58 Pulse Ox 99 10/18/17 17:22 - Medical History PMH: Anxiety, Bipolar Disorder, Depression, Seizures (Benzo withdrawal) - [facility] Procedures DETOXIFICATION SERVICES FOR SUBSTANCE ABUSE TREATMENT (08/20/17) GROUP PSYCHOTHERAPY (08/20/17) INDIVIDUAL PSYCHOTHERAPY, SUPPORTIVE (08/20/17) MEDICATION MANAGEMENT (08/20/17) MEDS MGMT FOR SUBSTANCE ABUSE TREATMENT, METHADONE MAINT (11/15/15) PHARMACOTHERAPY FOR SUBSTANCE ABUSE, METHADONE MAINT (08/20/17) Family History: States: No Known Family Hx - Social History Hx Tobacco Use: No Hx Alcohol Use: Yes Hx Substance Use: Yes - Immunization History Hx Tetanus Toxoid Vaccination: No Hx Influenza Vaccination: No Hx Pneumococcal Vaccination: No Review Of Systems Except As Marked, All Systems Reviewed And Found Negative. Constitutional: Negative for: Fever, Chills Cardiovascular: Negative for: Chest Pain Gastrointestinal: Negative for: Vomiting Psych: Positive for: Depression, Suicidal ideation Physical Exam - Physical Exam Appears: Non-toxic, No Acute Distress Skin: Warm, Dry, No Rash Head: Normacephalic Eye(s): bilateral: Normal Inspection, PERRL, EOMI Nose: Normal Oral Mucosa: Moist Lips: Normal Appearing Throat: Normal Neck: Normal Cardiovascular: Rhythm Regular Respiratory: Normal Breath Sounds Gastrointestinal/Abdominal: Normal Exam Back: Normal Inspection Extremity: Normal ROM, No Deformity Neurological/Psych: Oriented x3, Normal Speech ED Course And Treatment - Laboratory Results Result Diagrams: 10/18/17 16:58 10/18/17 15:57 Lab Interpretation: No Acute Changes (UDS + benzos and methadone) O2 Sat by Pulse Oximetry: 99 (RA) Pulse Ox Interpretation: Normal Progress Note: Patient is medically cleared for a psychiatric admission. Disposition - Disposition Disposition: HOSPITALIZED Disposition Time: 18:46 Condition: STABLE - POA Present On Arrival: None - Clinical Impression Clinical Impression: Major depression, Sedative, hypnotic or anxiolytic use disorder, severe, dependence, Suicidal ideation - Scribe Statement The provider has reviewed the documentation as recorded by the Scribe (Gene Kelley) All medical record entries made by the Scribe were at my direction and personally dictated by me. I have reviewed the chart and agree that the record accurately reflects my personal performance of the history, physical exam, medical decision making, and the department course for this patient. I have also personally directed, reviewed, and agree with the discharge instructions and disposition.
[2017-10-18 16:16] LABS: SQUAMOUS EPITHIAL < 1 /hpf (0-5); URINE BACTERIA RARE (<OCC); URINE BILIRUBIN NEGATIVE (NEGATIVE); URINE BLOOD NEGATIVE (NEGATIVE); URINE CLARITY Clear (Clear); URINE COLOR Yellow (YELLOW); URINE GLUCOSE (UA) NORMAL (Normal); URINE PROTEIN NEGATIVE (NEGATIVE)
[2017-10-18 16:22] LABS: URINE LEUKOCYTE ESTERASE NEGATIVE Leu/uL (Negative)
[2017-10-18 16:30] LABS: ALB/GLOB RATIO 1.4 (1.0-2.1); ALBUMIN 3.9 g/dL (3.5-5.0); ALT/SGPT 40 U/L (21-72); AST/SGOT 42 U/L (17-59); BLOOD UREA NITROGEN 11 mg/dL (9-20); CALCIUM 8.5 mg/dl (8.6-10.4); GFR AFRICAN-AMERICAN > 60; GFR NON-AFRICAN AMERICAN > 60
[2017-10-18 16:33] LABS: OPIATES, UR NEGATIVE (NEGATIVE); PHENCYCLIDINE, UR NEGATIVE (NEGATIVE)
[2017-10-18 16:34] LABS: BARBITURATES, UR POSITIVE (NEGATIVE); BENZODIAZEPINES, UR POSITIVE (NEGATIVE)
[2017-10-18 17:05] LABS: BASO # 0.1 K/uL (0.0-0.2); BASO % 0.6 % (0.0-2.0); EOS % 0.4 % (0.0-4.0); HEMOGLOBIN 13.8 g/dL (12.0-18.0); LYMPH # 3.3 K/uL (1.0-4.3); LYMPH % 41.9 % (20.0-40.0); MEAN CELL VOLUME 83.4 fL (80.0-94.0); MEAN CORPUSCULAR HEMOGLOBIN 29.7 pg (27.0-31.0); MEAN CORPUSCULAR HGB CONC 35.6 g/dL (33.0-37.0); MEAN PLATELET VOLUME 7.3 fL (7.2-11.7); MONO # 0.7 K/uL (0.0-0.8); MONO % 8.5 % (0.0-10.0); NEUT # 3.8 K/uL (1.8-7.0); NEUT % 48.6 % (50.0-75.0); NRBC % 0.1 % (0.0-2.0); RBC 4.63 Mil/uL (4.40-5.90); RED CELL DISTRIBUTION WIDTH 13.5 % (11.5-14.5); WHITE BLOOD COUNT 7.9 K/uL (4.8-10.8)
--- NOTE | 2017-10-18 20:05 | PCM.BM ---
<Haylie Joe - Last Filed: 10/18/17 20:04> Treatment Plan Problems - Problems identified on initial assessmt Depression Date Initiated: 10/18/17 Time Initiated: 20:04 Assessment reference: NA Status: Active Comment: on methadone maintenance Treatment assets and liabiliti Patient Assests: cooperative, self-reliant, ADL independent, negotiates basic needs, cognitively intact Patient Liabilities: live alone, poor support system, substance abuse - Milieu Protocol Maintain good personal hygiene: daily Encourage regular showers, daily Remind patient to perform daily oral care Conduct patient checks and document Observation sheet: Q15 minutes Maintain personal safety: every shift Educate patient to report safety concerns to staff, every shift Monitor environment for contraband/sharps Medication safety: Monitor for expected outcome, potential side effects: every shift, Assess barriers to learning: every shift, Assess readiness for medication education: every shift <FernandoBrad - Last Filed: 10/20/17 11:17> - Diagnosis (1) Bipolar disease, chronic Status: Acute Interventions: 10/20/17 11:17 * Assess/adjust medications daily and /or as needed * See patient on an individual basis 7x/week to assess level of manic behaviors and stability * Discuss risks, benefits, side effects and alternatives of medications * (2) Sedative, hypnotic or anxiolytic use disorder, severe, dependence Status: Acute Interventions: 10/20/17 11:17 * Assess 7x/week regarding severity of withdrawal * Educate regarding risks, benefits, side effects and alternatives of medications * Use Motivational Interviewing for abstinence * Use CBT for relapse prevention * Medication management for withdrawal symptoms * Encourage medication assisted treatment * <Mala Ling - Last Filed: 10/20/17 11:18> Family Contact Family involvement: Famliy/SO not involved - Goals for Treatment Patient goals for treatment: "I want to go to rehab." Discharge/Continuing Care - Education Needs Education Needs: Patient Medication, Patient Coping Skills, Patient Placement options, Patient Community resources - Discharge Discharge Criteria: Tolerates medication w/o severe side effects, No longer exhibiting s/s of withdrawal, Reduction of target symptoms Discharge to:: Substance Abuse Rehab - Treatment Team Participation Discussed with Family/SO: No Was Patient/Family/SO present at Treatment Team Meeting: Yes
--- NOTE | 2017-10-19 10:25 | PCM.PSYCH ---
Initial Psychiatric Evaluation - Initial Psychiatric Evaluation Type of Admission: Voluntary Legal Status: Capacity Chief Complaint (in patient's own words): "I am suicidal." History of Present Illness and Precipitating Events: This is a 42 year old male, who is unemployed and lives alone, who came to the ED because he felt depressed and had suicidal ideation. Patient states for the past three days he has had thoughts of driving into oncoming traffic. He states he is tired of using and being addicted. Patient has previous suicide attempt in the past. He states a year ago he overdosed on methadone and Xanax. He has past history of psychiatric hospitalizations; he previously was at [facility] in 08/2017 and 10/2016. Patient is currently in a methadone program. He also uses Xanax as well. Patient states he occasionally uses cocaine and marijuana. Patient denied alcohol use. Patient states he was experiencing auditory hallucinations two days ago; he believes it was due to trying to reduce his Xanax intake. Patient denies visual hallucinations or feelings of paranoia. Medical History: denies Psych History: Opioid Use Disorder Social History: Currently lives alone. Does not work. Smokes cigarettes 1/2 PPD. Denies alcohol consumption. Current Medications: Active Medications Generic Name Dose Route Start Last Admin Trade Name Freq PRN Reason Stop Dose Admin Bupropion HCl 75 mg 10/19/17 10:00 10/19/17 10:13 Wellbutrin PO 75 mg DAILY MALDONADO Administration Hydroxyzine HCl 50 mg 10/18/17 20:02 Atarax PO Q6 PRN Anxiety Ibuprofen 600 mg 10/18/17 20:02 Motrin Tab PO Q6 PRN Pain, moderate (4-7) Mirtazapine 30 mg 10/18/17 22:00 10/18/17 21:32 Remeron PO 30 mg HS MALDONADO Administration Trazodone HCl 50 mg 10/18/17 22:00 10/18/17 21:31 Desyrel PO 50 mg HS MALDONADO Administration Past Psychiatric History - Past Psychiatric History Previous Treatment History: Inpatient Prior Psychiatric Treatment: [facility] Nature of Treatment: Depression History of ETOH/Drug Use: Opioid Use Disorder Pertinent Medical Hx (Current Medical&Sleep Prob, Allergies): Allergies Allergy/AdvReac Type Severity Reaction Status Date / Time No Known Allergies Allergy Verified 08/20/17 19:12 Methadone 85 mg PO DAILY 10/29/15 Review of Systems - Review of Systems All systems: reviewed and no additional remarkable complaints except - Psychiatric Psychiatric: Anxiety, Auditory Hallucinations, Depression, Hopelessness, Suicidal Ideation. absent: Paranoia, Visual Hallucinations Mental Status Examination - Personal Presentation Personal Presentation: Looks older than stated age - Affect Affect: Depressed - Motor Activity Motor Activity: Psychomotor Agitation - Reliability in Providing Information Reliability in Providing Information: Fair - Speech Speech: Organized - Mood Mood: Depressed - Obsessions/Compulsions Obsessions: No Compulsions: No - Cognitive Functions Orientation: Person, Place, Situation, Time Sensorium: Alert - Risk Risk: Withdrawal - Limitations Limitations: Living alone DSM 5 DX - DSM 5 DSM 5 Diagnosis: Bipolar disorder depressed severe without psychotic features Sedative hypnotic use disorder severe, Sedative hypnotic withdrawal Cocaine use d/o moderate Opioid use d/o severe in remission on agonist therapy - Recommended/Plan of Treatment Treatment Recommendations and Plan of Treatment: Bipolar disorder depressed severe without psychotic features Sedative hypnotic use disorder severe, Sedative hypnotic withdrawal Cocaine use d/o moderate Opioid use d/o severe in remission on agonist therapy Start Methadone 85mg Start Wellbutrin 75mg Mirtazapine 30 mg Trazodone 50 mg Ativan 1 mg PO Q6hr prn All risks, benefits and alternatives of the meds discussed, and the pt agreed and understood. Attend groups and activities Individual therapy daily Psychoeducation and support daily Encourage compliance with meds and after care Refer to outpatient program Teach healthy lifestyle methods, i.e. diet, exercise, meditation Smoking cessation and patch
[2017-10-19] MEDS: Methadone 40 mg Tab PO SCH (11:02)
[2017-10-20] MEDS: Methadone 40 mg Tab PO SCH (10:04)
--- NOTE | 2017-10-20 11:17 | PCM.PYCHPN ---
Psychiatric Progress Note - Psychiatric Progress Note Patient seen today, length of contact: 15 min Patient Chief Complaint: "I am suicidal." Problems Identified/Issues Discussed: Patient seen and evaluated, chart reviewed and discussed with the nurse. Patient still reports depressed mood but reports some improvement in his feelings of hopelessness or helplessness. As per the staff, patient still appears isolated, depressed and withdrawn. However he denies any auditory or visual hallucinations or any psychotic symptoms. He needs some more time for stabilization. He is compliant with his medications and denies any side effects. Supportive therapy and psychoeducation were given. Medication Change: Yes Medical Record Reviewed: Yes Mental Status Examination - Cognitive Function Orientation: Person, Place, Situation, Time Memory: Intact Attention: WNL Concentration: Poor Association: WNL Fund of Knowledge: Poor - Mood Mood: Depressed, Anxious - Affect Affect: Constricted, Depressed - Speech Speech: Slurred - Formal Thought Process Formal Thought Process: No Impairment - Suicidal Ideation Suicidal Ideation: No - Homicidal Ideation Homicidal Ideation: No Goal/Treatment Plan - Goal/Treatment Plan Need for Continued Stay: Severe depression anxiety, Severe functional impairment Progress Toward Problem(s) and Goals/Treatment Plan: Bipolar disorder depressed severe without psychotic features Sedative hypnotic use disorder severe, Sedative hypnotic withdrawal Cocaine use d/o moderate Opioid use d/o severe in remission on agonist therapy Start Methadone 85mg Start Wellbutrin 75mg Mirtazapine 30 mg Trazodone 50 mg Ativan 1 mg PO Q6hr prn All risks, benefits and alternatives of the meds discussed, and the pt agreed and understood. Attend groups and activities Individual therapy daily Psychoeducation and support daily Encourage compliance with meds and after care Refer to outpatient program Teach healthy lifestyle methods, i.e. diet, exercise, meditation Smoking cessation and patch
[2017-10-21] MEDS: Methadone 40 mg Tab PO SCH (09:24)
--- NOTE | 2017-10-21 13:03 | PCM.PYCHPN ---
Psychiatric Progress Note - Psychiatric Progress Note Patient seen today, length of contact: 15 min Patient Chief Complaint: "I am feeling little better." Problems Identified/Issues Discussed: Patient seen and evaluated, chart reviewed and discussed with the nurse. Patient still reports depressed mood but reports some improvement in his feelings of hopelessness or helplessness. As per the staff, patient still appears isolated, depressed and withdrawn. However he denies any auditory or visual hallucinations or any psychotic symptoms. He needs some more time for stabilization. He is compliant with his medications and denies any side effects. Supportive therapy and psychoeducation were given. Medication Change: Yes Medical Record Reviewed: Yes Mental Status Examination - Cognitive Function Orientation: Person, Place, Situation, Time Memory: Intact Attention: WNL Concentration: Poor Association: WNL Fund of Knowledge: Poor - Mood Mood: Depressed - Affect Affect: Depressed - Speech Speech: Soft - Formal Thought Process Formal Thought Process: No Impairment - Suicidal Ideation Suicidal Ideation: No - Homicidal Ideation Homicidal Ideation: No Goal/Treatment Plan - Goal/Treatment Plan Need for Continued Stay: Severe depression anxiety, Severe functional impairment Progress Toward Problem(s) and Goals/Treatment Plan: Bipolar disorder depressed severe without psychotic features Sedative hypnotic use disorder severe, Sedative hypnotic withdrawal Cocaine use d/o moderate Opioid use d/o severe 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 Attend groups and activities Individual therapy daily Psychoeducation and support daily Encourage compliance with meds and after care Refer to outpatient program Teach healthy lifestyle methods, i.e. diet, exercise, meditation Smoking cessation and patch - Smoking Cessation Smoking Cessation Initiated: No
[2017-10-22] MEDS: Methadone 40 mg Tab PO SCH (09:25)
[2017-10-23] MEDS: Methadone 40 mg Tab PO SCH (09:03)
[2017-10-23 16:20] VITALS: O2SAT 52
[2017-10-24] MEDS: Methadone 40 mg Tab PO SCH (09:34)
--- NOTE | 2017-10-24 14:42 | PCM.PYCHPN ---
Psychiatric Progress Note - Psychiatric Progress Note Patient seen today, length of contact: 15 min Patient Chief Complaint: "I am feeling little better." Problems Identified/Issues Discussed: Patient seen and evaluated, chart reviewed and discussed with the nurse. Patient reports some improvement in his depressed mood and some improvement in his feelings of hopelessness or helplessness. As per the staff, patient still appears isolated, depressed and withdrawn. However he denies any auditory or visual hallucinations or any psychotic symptoms. He needs some more time for stabilization. He is compliant with his medications and denies any side effects. Supportive therapy and psychoeducation were given. Medication Change: Yes Medical Record Reviewed: Yes Mental Status Examination - Cognitive Function Orientation: Person, Place, Situation, Time Memory: Intact Attention: WNL Concentration: Poor Association: WNL Fund of Knowledge: Poor - Mood Mood: Depressed - Affect Affect: Depressed - Speech Speech: Soft - Formal Thought Process Formal Thought Process: No Impairment - Suicidal Ideation Suicidal Ideation: No - Homicidal Ideation Homicidal Ideation: No Goal/Treatment Plan - Goal/Treatment Plan Need for Continued Stay: Severe depression anxiety, Severe functional impairment Progress Toward Problem(s) and Goals/Treatment Plan: Bipolar disorder depressed severe without psychotic features Sedative hypnotic use disorder severe, Sedative hypnotic withdrawal Cocaine use d/o moderate Opioid use d/o severe 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 Attend groups and activities Individual therapy daily Psychoeducation and support daily Encourage compliance with meds and after care Refer to outpatient program Teach healthy lifestyle methods, i.e. diet, exercise, meditation Smoking cessation and patch
[2017-10-25] MEDS: Methadone 40 mg Tab PO SCH (09:04)
--- NOTE | 2017-10-25 12:29 | PCM.BM ---
<Mahsa Seymour - Last Filed: 10/25/17 12:26> Treatment Plan Problems - Problems identified on initial assessmt Depression Date Initiated: 10/18/17 Time Initiated: 20:04 Assessment reference: NA Status: Active Comment: on methadone maintenance Treatment assets and liabiliti Patient Assests: cooperative, self-reliant, ADL independent, negotiates basic needs, cognitively intact Patient Liabilities: live alone, poor support system, substance abuse - Milieu Protocol Maintain good personal hygiene: daily Encourage regular showers, daily Remind patient to perform daily oral care Conduct patient checks and document Observation sheet: Q15 minutes Maintain personal safety: every shift Educate patient to report safety concerns to staff, every shift Monitor environment for contraband/sharps Medication safety: Monitor for expected outcome, potential side effects: every shift, Assess barriers to learning: every shift, Assess readiness for medication education: every shift Milieu Narrative: Bipolar disorder depressed severe without psychotic features Sedative hypnotic use disorder severe, Sedative hypnotic withdrawal Cocaine use d/o moderate Opioid use d/o severe 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 Attend groups and activities Individual therapy daily Psychoeducation and support daily Encourage compliance with meds and after care Refer to outpatient program Teach healthy lifestyle methods, i.e. diet, exercise, meditation Smoking cessation and patch Family Contact Family involvement: Famliy/SO not involved - Goals for Treatment Patient goals for treatment: "I want to go to rehab." Discharge/Continuing Care - Education Needs Education Needs: Patient Medication, Patient Coping Skills, Patient Placement options, Patient Community resources - Discharge Discharge Criteria: Tolerates medication w/o severe side effects, No longer exhibiting s/s of withdrawal, Reduction of target symptoms Discharge to:: Substance Abuse Rehab - Treatment Team Participation Patient/Family/SO Statement: Bipolar disorder depressed severe without psychotic features Sedative hypnotic use disorder severe, Sedative hypnotic withdrawal Cocaine use d/o moderate Opioid use d/o severe 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 Attend groups and activities Individual therapy daily Psychoeducation and support daily Encourage compliance with meds and after care Refer to outpatient program Teach healthy lifestyle methods, i.e. diet, exercise, meditation Smoking cessation and patch Discussed with Family/SO: No Was Patient/Family/SO present at Treatment Team Meeting: Yes Treatment Plan Review - Problem Depression Time Initiated: 20:04 - Discharge / Continuing Care Discharge to:: Substance Abuse Rehab Behavioral Health Services: Residential treatment Health Needs: Medications/Rx, Alcohol/Drug treatment <Brad King - Last Filed: 10/25/17 13:33> - Diagnosis (1) Bipolar disease, chronic Status: Acute Interventions: 10/25/17 13:33 * Assess/adjust medications daily and /or as needed * See patient on an individual basis 7x/week to assess level of manic behaviors and stability * Discuss risks, benefits, side effects and alternatives of medications * (2) Sedative, hypnotic or anxiolytic use disorder, severe, dependence Status: Acute Interventions: 10/25/17 13:33 * Assess 7x/week regarding severity of withdrawal * Educate regarding risks, benefits, side effects and alternatives of medications * Use Motivational Interviewing for abstinence * Use CBT for relapse prevention * Medication management for withdrawal symptoms * Encourage medication assisted treatment * <Lashon Seay - Last Filed: 10/26/17 15:30> Treatment Plan Review - Problem Depression Date Initiated: 10/26/17 Time Initiated: 12:00 Progress toward outcomes: improved
--- NOTE | 2017-10-25 13:34 | PCM.PYCHPN ---
Psychiatric Progress Note - Psychiatric Progress Note Patient seen today, length of contact: 15 min Patient Chief Complaint: "I am feeling little better." Problems Identified/Issues Discussed: Patient seen and evaluated, chart reviewed and discussed with the nurse. Patient reports improvement in the depressed mood and improvement in his feelings of hopelessness or helplessness. As per the staff, patient still appears isolated, depressed and withdrawn. However he denies any auditory or visual hallucinations or any psychotic symptoms. He needs some more time for stabilization. He is compliant with his medications and denies any side effects. Supportive therapy and psychoeducation were given. Medication Change: Yes Medical Record Reviewed: Yes Mental Status Examination - Cognitive Function Orientation: Person, Place, Situation, Time Memory: Intact Attention: WNL Concentration: Poor Association: WNL Fund of Knowledge: Poor - Mood Mood: Depressed - Affect Affect: Depressed - Speech Speech: Soft - Formal Thought Process Formal Thought Process: No Impairment - Suicidal Ideation Suicidal Ideation: No - Homicidal Ideation Homicidal Ideation: No Goal/Treatment Plan - Goal/Treatment Plan Need for Continued Stay: Severe depression anxiety, Severe functional impairment Progress Toward Problem(s) and Goals/Treatment Plan: Bipolar disorder depressed severe without psychotic features Sedative hypnotic use disorder severe, Sedative hypnotic withdrawal Cocaine use d/o moderate Opioid use d/o severe 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 Attend groups and activities Individual therapy daily Psychoeducation and support daily Encourage compliance with meds and after care Refer to outpatient program Teach healthy lifestyle methods, i.e. diet, exercise, meditation Smoking cessation and patch
[2017-10-26] MEDS: Methadone 40 mg Tab PO SCH (09:11)
--- NOTE | 2017-10-26 10:07 | PCM.PYCHPN ---
Psychiatric Progress Note - Psychiatric Progress Note Patient seen today, length of contact: 15 min Patient Chief Complaint: "I am feeling little better." Problems Identified/Issues Discussed: Patient seen and evaluated, chart reviewed and discussed with the nurse. Patient reports improvement in the depressed mood and he started coming out of his room. He denies any auditory or visual hallucinations or any psychotic symptoms. He wants to go to the inpt rehab. He needs some more time for stabilization. He is compliant with his medications and denies any side effects. Supportive therapy and psychoeducation were given. Medication Change: Yes Medical Record Reviewed: Yes Mental Status Examination - Cognitive Function Orientation: Person, Place, Situation, Time Memory: Intact Attention: WNL Concentration: Poor Association: WNL Fund of Knowledge: Poor - Mood Mood: Depressed - Affect Affect: Depressed - Speech Speech: Soft - Formal Thought Process Formal Thought Process: No Impairment - Suicidal Ideation Suicidal Ideation: No - Homicidal Ideation Homicidal Ideation: No Goal/Treatment Plan - Goal/Treatment Plan Need for Continued Stay: Severe depression anxiety, Severe functional impairment Progress Toward Problem(s) and Goals/Treatment Plan: Bipolar disorder depressed severe without psychotic features Sedative hypnotic use disorder severe, Sedative hypnotic withdrawal Cocaine use d/o moderate Opioid use d/o severe 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 Attend groups and activities Individual therapy daily Psychoeducation and support daily Encourage compliance with meds and after care Refer to outpatient program Teach healthy lifestyle methods, i.e. diet, exercise, meditation Smoking cessation and patch
[2017-10-27] MEDS: Methadone 40 mg Tab PO SCH (09:03)
--- NOTE | 2017-10-27 10:41 | PCM.PYCHPN ---
Psychiatric Progress Note - Psychiatric Progress Note Patient seen today, length of contact: 15 min Patient Chief Complaint: "I am feeling little better." Problems Identified/Issues Discussed: Patient seen and evaluated, chart reviewed and discussed with the nurse. Patient reports improvement in the depressed mood and he started coming out of his room. He denies any auditory or visual hallucinations or any psychotic symptoms. He wants to go to the inpt rehab. He needs some more time for stabilization. He is compliant with his medications and denies any side effects. Supportive therapy and psychoeducation were given. Medication Change: Yes (increase wellbutrin) Medical Record Reviewed: Yes Mental Status Examination - Cognitive Function Orientation: Person, Place, Situation, Time Memory: Intact Attention: WNL Concentration: Poor Association: WNL Fund of Knowledge: Poor - Mood Mood: Depressed - Affect Affect: Depressed - Speech Speech: Soft - Formal Thought Process Formal Thought Process: No Impairment - Suicidal Ideation Suicidal Ideation: No - Homicidal Ideation Homicidal Ideation: No Goal/Treatment Plan - Goal/Treatment Plan Need for Continued Stay: Severe depression anxiety, Severe functional impairment Progress Toward Problem(s) and Goals/Treatment Plan: Bipolar disorder depressed severe without psychotic features Sedative hypnotic use disorder severe, Sedative hypnotic withdrawal Cocaine use d/o moderate Opioid use d/o severe in remission on agonist therapy Methadone 85mg Wellbutrin 150 mg Mirtazapine 30 mg Trazodone 50 mg Ativan 1 mg PO Q6hr prn All risks, benefits and alternatives of the meds discussed, and the pt agreed and understood. Attend groups and activities Individual therapy daily Psychoeducation and support daily Encourage compliance with meds and after care Refer to outpatient program Teach healthy lifestyle methods, i.e. diet, exercise, meditation Smoking cessation and patch
[2017-10-28] MEDS: Methadone 40 mg Tab PO SCH (09:05)
[2017-10-28] MEDS: buPROPion 150 mg/24 Hours XL Tab PO SCH (09:05)
[2017-10-29] MEDS: buPROPion 150 mg/24 Hours XL Tab PO SCH (09:02)
[2017-10-29] MEDS: Methadone 40 mg Tab PO SCH (09:02)
--- NOTE | 2017-10-29 20:48 | PCM.PYCHPN ---
Psychiatric Progress Note - Psychiatric Progress Note Patient seen today, length of contact: 15 min Patient Chief Complaint: 15 min Problems Identified/Issues Discussed: The pt is seen, chart reviewed, case discussed with staff. The pt is compliant with medications and reports no side-effects. Symptoms are improving but needs more time to stabilize. After care discussed, support and psychoeducation given. Medication Change: Yes (seroquel) Medical Record Reviewed: Yes Mental Status Examination - Cognitive Function Orientation: Person, Place, Situation, Time Memory: Intact Attention: WNL Concentration: Poor Association: WNL Fund of Knowledge: Poor - Mood Mood: Depressed - Affect Affect: Depressed - Speech Speech: Soft - Formal Thought Process Formal Thought Process: No Impairment - Suicidal Ideation Suicidal Ideation: No - Homicidal Ideation Homicidal Ideation: No Goal/Treatment Plan - Goal/Treatment Plan Need for Continued Stay: Severe depression anxiety, Discharge may exacerbated symptoms, Severe functional impairment Progress Toward Problem(s) and Goals/Treatment Plan: Continue medications Support and psychoeducation daily Attend groups and activities daily After care planning by JAGDEEP
--- NOTE | 2017-10-30 00:26 | PCM.PYCHPN ---
Psychiatric Progress Note - Psychiatric Progress Note Patient seen today, length of contact: 15 min Patient Chief Complaint: "Nervous" Problems Identified/Issues Discussed: The pt is seen, chart reviewed, case discussed with staff. Support given, CBT and AR used briefly No new symptoms reported, improving slowly and needs more time No SEs from medications, risks discussed. After care discussed - calling [facility] daily Medication Change: Yes (seroquel) Medical Record Reviewed: Yes Mental Status Examination - Cognitive Function Orientation: Person, Place, Situation, Time Memory: Intact Attention: WNL Concentration: Poor Association: WNL Fund of Knowledge: Poor - Mood Mood: Depressed - Affect Affect: Depressed - Speech Speech: Soft - Formal Thought Process Formal Thought Process: No Impairment - Suicidal Ideation Suicidal Ideation: No - Homicidal Ideation Homicidal Ideation: No Goal/Treatment Plan - Goal/Treatment Plan Need for Continued Stay: Severe depression anxiety, Discharge may exacerbated symptoms, Severe functional impairment Progress Toward Problem(s) and Goals/Treatment Plan: Continue medications Support and psychoeducation daily Attend groups and activities daily After care planning by JAGDEEP
[2017-10-30 09:01] VITALS: RESP 20
[2017-10-30] MEDS: Methadone 40 mg Tab PO SCH (09:02)
[2017-10-30] MEDS: buPROPion 150 mg/24 Hours XL Tab PO SCH (09:02)
--- NOTE | 2017-10-30 11:19 | PCM.PYCHPN ---
Psychiatric Progress Note - Psychiatric Progress Note Patient seen today, length of contact: 15 min Patient Chief Complaint: "I am feeling little better." Problems Identified/Issues Discussed: Patient seen and evaluated, chart reviewed and discussed with the nurse. Patient reports improvement in the depressed mood and he started coming out of his room. He denies any auditory or visual hallucinations or any psychotic symptoms. He wants to go to the inpt rehab. He needs some more time for stabilization. He is compliant with his medications and denies any side effects. Supportive therapy and psychoeducation were given. Medication Change: Yes (seroquel) Medical Record Reviewed: Yes Mental Status Examination - Cognitive Function Orientation: Person, Place, Situation, Time Memory: Intact Attention: WNL Concentration: Poor Association: WNL Fund of Knowledge: Poor - Mood Mood: Depressed - Affect Affect: Depressed - Speech Speech: Soft - Formal Thought Process Formal Thought Process: No Impairment - Suicidal Ideation Suicidal Ideation: No - Homicidal Ideation Homicidal Ideation: No Goal/Treatment Plan - Goal/Treatment Plan Need for Continued Stay: Severe depression anxiety, Discharge may exacerbated symptoms, Severe functional impairment Progress Toward Problem(s) and Goals/Treatment Plan: Bipolar disorder depressed severe without psychotic features Sedative hypnotic use disorder severe, Sedative hypnotic withdrawal Cocaine use d/o moderate Opioid use d/o severe in remission on agonist therapy Methadone 85mg Wellbutrin 150 mg Mirtazapine 30 mg Trazodone 50 mg Ativan 1 mg PO Q6hr prn All risks, benefits and alternatives of the meds discussed, and the pt agreed and understood. Attend groups and activities Individual therapy daily Psychoeducation and support daily Encourage compliance with meds and after care Refer to outpatient program Teach healthy lifestyle methods, i.e. diet, exercise, meditation Smoking cessation and patch
[2017-10-31] MEDS: buPROPion 150 mg/24 Hours XL Tab PO SCH (09:44)
[2017-10-31] MEDS: Methadone 40 mg Tab PO SCH (09:44)
[2017-11-01] MEDS: buPROPion 150 mg/24 Hours XL Tab PO SCH (09:01)
[2017-11-01] MEDS: Methadone 40 mg Tab PO SCH (09:01)
--- NOTE | 2017-11-01 10:46 | PCM.PYCHDC ---
Mental Status Examination - Mental Status Examination Orientation: Person, Place, Situation, Time Memory: Intact Mood: Neutral Affect: Constricted Speech: Soft Attention: WNL Concentration: WNL Association: WNL Fund of Knowledge: WNL Formal Thought Process: No Impairment Description of patient's judgement and insight: good, fair Psychotic Thoughts and Behaviors: denies any AVH Suicidal Ideation: No Current Homicidal Ideation?: No Discharge Summary - Discharge Note Psychiatric History (includes Medical, Family, Personal Hx): Depression Consultations:: List each consultation separately and include: 1. Reason for request. 2. Findings. 3. Follow-up Summary of Hospital Course include:: 1. Description of specific treatment plan utilized for patients during their course of treatmen. 2. Summarize the time- course for resolution of acute symptoms and/or regressed behaviors. 3. Describe issues identified and worked on during hospitalization. 4. Describe medication utilized. 5. Describe medical problems identified and treated. 6. Reassessment of suicide risk Summary of Hospital Course: This is a 42 year old male, who is unemployed and lives alone, who came to the ED because he felt depressed and had suicidal ideation. Patient states for the past three days he has had thoughts of driving into oncoming traffic. He states he is tired of using and being addicted. Patient has previous suicide attempt in the past. He states a year ago he overdosed on methadone and Xanax. He has past history of psychiatric hospitalizations; he previously was at [facility] in 08/2017 and 10/2016. Patient is currently in a methadone program. He also uses Xanax as well. Patient states he occasionally uses cocaine and marijuana. Patient denied alcohol use. Patient states he was experiencing auditory hallucinations two days ago; he believes it was due to trying to reduce his Xanax intake. Patient denies visual hallucinations or feelings of paranoia. Medical History: denies Psych History: Opioid Use Disorder Social History: Currently lives alone. Does not work. Smokes cigarettes 1/2 PPD. Denies alcohol consumption. - Diagnosis (1) Bipolar disease, chronic Current Visit: No Status: Acute (2) Sedative, hypnotic or anxiolytic use disorder, severe, dependence Current Visit: Yes Status: Acute - Final Diagnosis (DSM 5) Condition upon Discharge: STABLE Disposition: HOME/ ROUTINE Follow-up Treatment Plan: Bipolar disorder depressed severe without psychotic features Sedative hypnotic use disorder severe, Sedative hypnotic withdrawal Cocaine use d/o moderate Opioid use d/o severe in remission on agonist therapy Methadone 85mg Wellbutrin 150 mg Mirtazapine 30 mg Trazodone 50 mg Ativan 1 mg PO Q6hr prn All risks, benefits and alternatives of the meds discussed, and the pt agreed and understood. Attend groups and activities Individual therapy daily Psychoeducation and support daily Encourage compliance with meds and after care Refer to outpatient program Teach healthy lifestyle methods, i.e. diet, exercise, meditation Smoking cessation and patch Prescriptions/Medication Reconciliation: buPROPion XL [Wellbutrin XL] 150 mg PO DAILY #30 t24 Gabapentin [Neurontin] 300 mg PO BID #60 cap Mirtazapine [Remeron] 30 mg PO HS #30 tab traZODone [Desyrel] 50 mg PO HS #30 tab
--- NOTE | 2017-11-01 23:58 | PCM.PYCHPN ---
Psychiatric Progress Note - Psychiatric Progress Note Patient seen today, length of contact: 15 min Patient Chief Complaint: "I am feeling little better." Problems Identified/Issues Discussed: Patient seen and evaluated, chart reviewed and discussed with the nurse. Patient reports improvement in the depressed mood and he started coming out of his room. He denies any auditory or visual hallucinations or any psychotic symptoms. He wants to go to the inpt rehab. He needs some more time for stabilization. He is compliant with his medications and denies any side effects. Supportive therapy and psychoeducation were given. Medication Change: Yes (seroquel) Medical Record Reviewed: Yes Mental Status Examination - Cognitive Function Orientation: Person, Place, Situation, Time Memory: Intact Attention: WNL Concentration: Poor Association: WNL Fund of Knowledge: Poor - Mood Mood: Depressed - Affect Affect: Depressed - Speech Speech: Soft - Formal Thought Process Formal Thought Process: No Impairment - Suicidal Ideation Suicidal Ideation: No - Homicidal Ideation Homicidal Ideation: No Goal/Treatment Plan - Goal/Treatment Plan Need for Continued Stay: Severe depression anxiety, Discharge may exacerbated symptoms, Severe functional impairment
[2017-11-02 06:05] VITALS: BP 100/66; PULSE 57; TEMP 98.2
[2017-11-02] MEDS: Methadone 40 mg Tab PO SCH (09:04)
[2017-11-02] MEDS: buPROPion 150 mg/24 Hours XL Tab PO SCH (09:04)
--- NOTE | 2017-11-02 09:59 | PCM.PYCHDC ---
Mental Status Examination - Mental Status Examination Orientation: Person, Place, Situation, Time Memory: Intact Mood: Neutral Affect: Constricted Speech: Soft Attention: WNL Concentration: WNL Association: WNL Fund of Knowledge: WNL Formal Thought Process: No Impairment Description of patient's judgement and insight: good, fair Psychotic Thoughts and Behaviors: denies any AVH Suicidal Ideation: No Current Homicidal Ideation?: No Discharge Summary - Discharge Note Psychiatric History (includes Medical, Family, Personal Hx): Depression Consultations:: List each consultation separately and include: 1. Reason for request. 2. Findings. 3. Follow-up Summary of Hospital Course include:: 1. Description of specific treatment plan utilized for patients during their course of treatmen. 2. Summarize the time- course for resolution of acute symptoms and/or regressed behaviors. 3. Describe issues identified and worked on during hospitalization. 4. Describe medication utilized. 5. Describe medical problems identified and treated. 6. Reassessment of suicide risk - Diagnosis (1) Bipolar disease, chronic Current Visit: No Status: Acute (2) Sedative, hypnotic or anxiolytic use disorder, severe, dependence Current Visit: Yes Status: Acute - Final Diagnosis (DSM 5) Condition upon Discharge: STABLE Disposition: HOME/ ROUTINE Prescriptions/Medication Reconciliation: buPROPion XL [Wellbutrin XL] 150 mg PO DAILY #30 t24 Gabapentin [Neurontin] 300 mg PO BID #60 cap Mirtazapine [Remeron] 30 mg PO HS #30 tab traZODone [Desyrel] 50 mg PO HS #30 tab - Smoking Cessation Smoking Cessation Medication prescribed: No - Antipsychotic Medications Pt discharged on 2 or more routine antipsychotic medications: No
--- NOTE | 2017-11-03 22:15 | CARD ---
APPROVED REPORT EKG Measurement Heart [id number] <Conclusion> Sinus bradycardia Nonspecific T wave abnormality Abnormal ECG
== END 2017-11-02 10:00 | disposition home or self-care (01) | DRG 430 ==
LOC: C.ER 14:44 → C.9E 18:47 → C.5E 19:00
PROC: HZ2ZZZZ Detoxification Services for Substance Abuse Treatment (ICD-10-PCS; principal; 2017-10-18)
PROC: GZHZZZZ Group Psychotherapy (ICD-10-PCS; 2017-10-18)
PROC: HZ56ZZZ Individual Psychotherapy for Substance Abuse Treatment, Psychoeducation (ICD-10-PCS; 2017-10-18)
PROC: HZ59ZZZ Individual Psychotherapy for Substance Abuse Treatment, Supportive (ICD-10-PCS; 2017-10-18)
PROC: HZ46ZZZ Group Counseling for Substance Abuse Treatment, Psychoeducation (ICD-10-PCS; 2017-10-18)
PROC: GZ56ZZZ Individual Psychotherapy, Supportive (ICD-10-PCS; 2017-10-18)
DX: F31.4 Bipolar disorder, current episode depressed, severe, without psychotic features (principal); F13.239 Sedative, hypnotic or anxiolytic dependence with withdrawal, unspecified; F14.90 Cocaine use, unspecified, uncomplicated; F11.21 Opioid dependence, in remission; F17.210 Nicotine dependence, cigarettes, uncomplicated; R45.851 Suicidal ideations; Z91.5 Personal history of self-harm; F41.8 Other specified anxiety disorders

== ENCOUNTER 2018-09-10 08:17 | Emergency (ER) | payer MEDICAID ==
[2018-09-10 08:17] VITALS: BMI 21.5
[2018-09-10 08:25] VITALS: O2SAT 98
[2018-09-10] MEDS ORDERED: Methadone 40 mg Tab PO STA (09:13)
--- NOTE | 2018-09-10 09:13 | C.PDOC ---
History Of Present Illness 43 y/o male with a PMHx of substance abuse presents to the ED for med refill. Patient reports he takes methadone 120 daily. He went to his methadone clinic today and they were closed due to the snow. Patient was instructed to come to the ED for treatment. He denies having any withdrawal symptoms. No other complaints at this time. Time Seen by Provider: 09/10/18 08:44 Chief Complaint (Nursing): Med Refill History Per: Patient History/Exam Limitations: no limitations Onset/Duration Of Symptoms: Days Current Symptoms Are (Timing): Still Present Past Medical History Reviewed: Historical Data, Nursing Documentation, Vital Signs Vital Signs: Last Vital Signs Temp 98.7 F 09/10/18 08:21 Pulse 89 09/10/18 08:21 Resp 17 09/10/18 08:21 BP 161/99 H 09/10/18 08:21 Pulse Ox 98 09/10/18 08:21 - Medical History PMH: Anxiety, Bipolar Disorder, Depression, Seizures Denies: Diabetes, Hepatitis, HIV, HTN, Chronic Kidney Disease, Sexually Transmitted Disease Other PMH: Substance abuse - [facility] Procedures DETOXIFICATION SERVICES FOR SUBSTANCE ABUSE TREATMENT (10/18/17) GROUP [employer] FOR SUBSTANCE ABUSE TREATMENT, PSYCHOEDUCATION (10/18/17) GROUP PSYCHOTHERAPY (10/18/17) INDIV PSYCHOTHERAPY FOR SUBSTANCE ABUSE TREATMENT, SUPPORT (10/18/17) INDIV PSYCHOTHERAPY FOR SUBSTANCE ABUSE, PSYCHOEDUCATION (10/18/17) INDIVIDUAL PSYCHOTHERAPY, SUPPORTIVE (10/18/17) MEDICATION MANAGEMENT (08/20/17) MEDS MGMT FOR SUBSTANCE ABUSE TREATMENT, METHADONE MAINT (11/15/15) PHARMACOTHERAPY FOR SUBSTANCE ABUSE, METHADONE MAINT (08/20/17) Family History: States: Unknown Family Hx - Social History Hx Tobacco Use: No Hx Alcohol Use: No Hx Substance Use: Yes (on methadone x 5 yrs) - Immunization History Hx Tetanus Toxoid Vaccination: Yes Hx Influenza Vaccination: No Hx Pneumococcal Vaccination: No Review Of Systems Constitutional: Negative for: Fever, Chills Respiratory: Negative for: Cough, Shortness of Breath Gastrointestinal: Negative for: Vomiting Musculoskeletal: Negative for: Other (tremors) Neurological: Negative for: Weakness, Dizziness Psych: Negative for: Suicidal ideation, Withdrawal Physical Exam - Physical Exam Appears: Well, Non-toxic, No Acute Distress Skin: Normal Color, Warm Head: Normacephalic Eye(s): bilateral: Normal Inspection (no scleral icterus) Neck: Normal ROM Chest: Symmetrical Respiratory: No Accessory Muscle Use, Other (Normal inspiratory effort) Extremity: Bilateral: Atraumatic, Normal ROM (x4) Neurological/Psych: Oriented x3, Normal Cranial Nerves ED Course And Treatment O2 Sat by Pulse Oximetry: 98 (RA) Pulse Ox Interpretation: Normal Medical Decision Making Medical Decision Making: Impression: Med refill, Methadone Plan: - Patient given his regular dose, methadone 120 mg x 1, in the ED Patient remains AAOx3, resting comfortably, in no acute distress. No other com plaints. Plan is to discharge patient home, instructed to follow up in the clinic. Disposition Counseled Patient/Family Regarding: Diagnosis, Need For Followup - Disposition Disposition: HOME/ ROUTINE Disposition Time: 09:17 Condition: STABLE Instructions: Methadone Forms: [facility] (Montenegrin), General Discharge Instructions - Clinical Impression Clinical Impression: Medication refill - PA / ADVANCED REGISTERED NURSE / Resident Statement MD/DO has reviewed & agrees with the documentation as recorded. - Scribe Statement The provider has reviewed the documentation as recorded by the Scribtom Alcazar All medical record entries made by the Martínibtom were at my direction and personally dictated by me. I have reviewed the chart and agree that the record accurately reflects my personal performance of the history, physical exam, medical decision making, and the department course for this patient. I have also personally directed, reviewed, and agree with the discharge instructions and disposition.
[2018-09-10 09:36] VITALS: BP 156/89; PULSE 88; RESP 18; TEMP 98
== END 2018-09-10 09:36 | disposition home or self-care (01) ==
LOC: C.ER 08:17
DX: Z76.0 Encounter for issue of repeat prescription (principal)